=== PATIENT | female | born 1970 | race Caucasian/White ===

== ENCOUNTER 2016-09-10 21:59 | Observation (INO) | payer OTHER ==
--- NOTE | ~2016-09-10 | BMI ---
[facility] Nutrition Therapy DATE: 09/12/16 Patient: LILLIAN Langston MATHEW PARKS Physician: RESHMA Address: [address] Room/Bed: [address] [place] [address], Zip: [place] [address] Admit Date: 09/11/16 Date of : 74 Height: 5 7 Weight: 310 140.8 HIGH BMI NOTE: DX: CHEST PRESSURE ANTHROPOMETRICS: HT: 5'7", 310# (141KG), BMI: 48.5 DIET: CCD, HT RECOMMENDATIONS: CONTINUE CURRENT DIET ORDERS OF CC, HEART HEALTHY TO PROMOTE A STEADY WEIGHT LOSS TOWARDS A HEALTHY BMI OF 19-25 AND NORMAL GLUCOSE LEVELS Respectfully, EMMANUEL SUÁREZ, YOAV, LD [facility] cc: client file
--- NOTE | ~2016-09-10 | CT71 ---
[facility] A Service of [facility] & [facility] RADIOLOGY TEXT RESULTS PATIENT: LILLIAN STEVENS LOCATION: [facility] 561-01 : 74 UNIT #: [id number] AGE: [address]: Jo Ann Gallardo MD SEX: F ORDER DR: [id number] [facility] [address] [place], [place] [address] [id number] I MR#: [id number] Acc #: [id number] NAME: LILLIAN STEVENS : 1970 SEX: F STUDY DATE/TIME: 09/10/2016 22:32 UNIT: [facility] ROOM: [facility] STUDY DESCRIPTION: CT Head Wo Contrast Attending Physician: Slava Lazo M.D. Ordering Physician: Winston Kirkland D.O. Primary Care Physician: Jo Ann Gallardo M.D. MEDICAL IMAGING REPORT This report is preliminary unless electronic signature is present EXAM Head CT, 09/10/2016 at 22:32 INDICATION Dizziness and double vision since 08:30 p.m. this evening. Positional vertigo. TECHNIQUE Axial images were obtained from the base to the vertex without contrast. Comparison is made with 05/11/2008. This CT exam was performed with one or more of the following radiation dose reduction techniques: automatic exposure control, adjustment of mA and/or kV according to patient size, and iterative reconstruction. FINDINGS Ventricular size and configuration are normal. There is no acute infarct or hemorrhage. There are no masses. Mild chronic mucosal thickening is noted in the sphenoid sinuses as well as the left maxillary sinus and left side ethmoid air cells. No evidence of acute sinus disease. No skull fracture. Visualized mastoid air cells and middle ear cavities are clear. IMPRESSION Mild chronic mucosal thickening in the paranasal sinuses. Otherwise, negative head CT. Dictated by... Danyel Yee Jr., M.D. THIS IS AN ELECTRONICALLY VERIFIED REPORT Danyel Yee Jr., M.D. at 09/11/2016 9:[address] [facility] A Service of [facility] RADIOLOGY TEXT RESULTS PATIENT: LILLIAN STEVENS LOCATION: [facility] 561-01 : 74 UNIT #: [id number] AGE: [address]: Jo Ann Gallardo MD SEX: F ORDER DR: FELIBERTO/hien TD: 09/11/2016 00:47 JOB #: [id number] MEDICAL IMAGING REPORT COPY
--- NOTE | ~2016-09-10 | US67 ---
[facility] A Service of [facility] RADIOLOGY TEXT RESULTS PATIENT: LILLIAN STEVENS LOCATION: [place] [address] : 74 UNIT #: [id number] AGE: [address]: Jo Ann Gallardo MD SEX: F ORDER DR: [id number] [facility] [address] [facility] [place], [place] [address] [id number] I MR#: [id number] Acc #: [id number] NAME: LILLIAN STEVENS. : 1970 SEX: F STUDY DATE/TIME: 09/11/2016 10:25 UNIT: B ROOM: [facility] STUDY DESCRIPTION: US Gallbladder Attending Physician: Jo Ann Gallardo M.D. Ordering Physician: Cookie Shirley M.D. Primary Care Physician: Jo Ann Gallardo M.D. MEDICAL IMAGING REPORT This report is preliminary unless electronic signature is present EXAM Right upper quadrant abdominal ultrasound. INDICATION Right upper quadrant abdominal pain today. PROCEDURE Trivedi-scale and Doppler imaging right upper quadrant of the abdomen. COMPARISON None FINDINGS Visualized portion of pancreas unremarkable. The liver has diffusely increased echotexture compared with the right kidney. Liver measures 14.5 cm. Right kidney not well seen but measures approximately 10.7 cm. The common duct measures 3-4 mm. Gallbladder is not well seen. There is shadowing from the gallbladder fossa. IMPRESSION 1. Dense shadowing from the gallbladder fossa. The gallbladder itself is not well seen on this study. It could represent a gallbladder filled with multiple stones. It is not seen well enough to comment on any wall thickening. 2. No significant bile duct dilation. 3. Increased liver echotexture most in keeping with steatosis. Dictated by... Eddie Martinez M.D. THIS IS AN ELECTRONICALLY VERIFIED REPORT [facility] A Service of [facility] RADIOLOGY TEXT RESULTS PATIENT: LILLIAN STEVENS LOCATION: [place] [address] : 74 UNIT #: [id number] AGE: [address]: Jo Ann Gallardo MD SEX: F ORDER DR: Eddie Martinez M.D. at 09/12/2016 11:39 AM PATI/darshana TD: 09/11/2016 11:40 JOB #: [id number] MEDICAL IMAGING REPORT COPY
--- NOTE | ~2016-09-10 | HP ---
Unit #: [id number] #: [id number] Patient: LILLIAN STEVENS [id number] [address] [address] [id number] I MR#: [id number] NAME: LILLIAN STEVENS. ROOM: [facility] Age: 46 Sex: F Admission Date: 09/11/2016 : 1970 Attending Physician: Jo Ann Gallardo M.D. Primary Care Physician: Jo Ann Gallardo M.D. HISTORY AND PHYSICAL CHIEF COMPLAINT Left-sided chest pain and dizziness. HISTORY OF PRESENTING ILLNESS A 46-year-old female with a history of hypertension, hyperlipidemia, diabetes mellitus, morbid obesity, came because of the complaint of left-sided chest pressure which was going on for some time. She has a history of coronary artery disease, had workup done in [facility] although details are not known. Patient received sublingual nitrate. It got better. The patient's pain was radiating to the left anterior chest and underneath the breast. She did not have any nausea or vomiting, did not complain of shortness of breath. She does complain of some dizzy spell. She also complained of some upper abdominal pain. No nausea or vomiting. No diarrhea. No major abdominal pain. PAST MEDICAL HISTORY 1. Hypertension. 2. Hyperlipidemia. 3. Diabetes mellitus. 4. Coronary artery disease with workup done at [facility]. 5. Embolectomy status post left upper extremity thrombus removed in February 2014. FAMILY HISTORY Family history is unremarkable. ALLERGIES No known drug allergies. SOCIAL HISTORY Patient is a smoker, continues to smoke. She used to smoke two packs per day. Now she is smoking a half pack. She has been smoking more than her years. No alcohol abuse or drug abuse. HOME MEDICATION Home medication is: 1. Aspirin 325 mg. 2. Simvastatin 20 mg. 3. Metoprolol 25 mg b.i.d. 4. Isosorbide 30 mg daily. 5. Lisinopril 5 mg daily. 6. Lantus 10 units subcu q.h.s. Unit #: [id number] #: [id number] Patient: LILLIAN STEVENS REVIEW OF SYMPTOMS As per history of presenting illness. PHYSICAL EXAMINATION GENERAL APPEARANCE: Patient is in no respiratory distress. VITAL SIGNS: Blood pressure is 155/93. Temperature 97.6. Pulse of 92. Respiratory rate 18. HEENT: Head is normocephalic. Eye movements are normal. NECK: Neck is supple. CHEST: Has fair air entry, no additional sounds. CVS: S1, S2 positive, regular rhythm. ABDOMEN: Abdomen is soft. Mild right upper quadrant tenderness is present. No rigidity or rebound. Bowel sounds are positive in all quadrants. EXTREMITIES: Negative edema. [employer]: Awake, alert and oriented x3. No focal neurological deficit. DIAGNOSTIC STUDIES IMAGING: CT scan is negative. LABORATORY: Troponin is in normal range, sodium is 137, WBC is 13, INR is 0.9, hemoglobin is 14.2, platelet is 300. ASSESSMENT Patient is being admitted to a telemetry unit with: 1. Atypical chest pain. 2. Right upper quadrant pain. 3. Hypertension, uncontrolled. 4. Diabetes mellitus. 5. Hyperlipidemia. PLAN Plan is admit to telemetry unit. Dr. Latham has been consulted. Stress test is being scheduled. Acute AZ has been ruled out. Home medication have been reviewed. Accu-Chek a.c. and h.s. and insulin sliding scale has been started. Nicotine cessation counseling done. Please refer to progress note for further orders. Dictated by Rodriguez Gama/pia TD: 09/12/2016 15:35 JOB #: [id number] Unit #: [id number] #: [id number] Patient: LILLIAN STEVENS HISTORY AND PHYSICAL X Jo Ann Gallardo MD X HISTORY AND PHYSICAL
--- NOTE | ~2016-09-10 | CR72 ---
[facility] A Service of [facility] RADIOLOGY TEXT RESULTS PATIENT: LILLIAN STEVENS LOCATION: [place] [address] : 74 UNIT #: [id number] AGE: [address]: Jo Ann Gallardo MD SEX: F ORDER DR: [id number] [facility] [address] [place], [place] [address] [id number] MR#: [id number] Acc #: [id number] NAME: LILLIAN STEVENS : 1970 SEX: F STUDY DATE/TIME: 09/10/2016 21:39 UNIT: [facility] ROOM: STUDY DESCRIPTION: CR Chest Single View Portable Attending Physician: Winston Kirkland D.O. Ordering Physician: Winston Kirkland D.O. Primary Care Physician: Jo Ann Gallardo M.D. MEDICAL IMAGING REPORT This report is preliminary unless electronic signature is present EXAM Portable chest, 09/10/2016 HISTORY Left lower chest pain today. FINDINGS The cardiac size and pulmonary vascularity are normal. Moderate mid-right thoracic curve and left upper thoracic curve. No infiltrates or effusions. IMPRESSION No acute findings. No active disease. Dictated by... Wilmer Lindsey M.D. THIS IS AN ELECTRONICALLY VERIFIED REPORT Wilmer Lindsey M.D. at 09/11/2016 12:21 PM DONNA/hien TD: 09/11/2016 00:32 JOB #: [id number] MEDICAL IMAGING REPORT COPY
--- NOTE | ~2016-09-10 | TH ---
Unit #: [id number] #: [id number] Patient: LILLIAN STEVENS K [id number] [address] [address] [id number] I MR#: [id number] NAME: LILLIAN STEVENS : 1970 SEX: F STUDY DATE/TIME: 09/11/2016 UNIT: C5B ROOM: [facility] STUDY DESCRIPTION: Lexiscan stress test - Nuclear Attending Physician: Jo Ann Gallardo M.D. Primary Care Physician: Jo Ann Gallardo M.D. CARDIOLOGY REPORT PROCEDURE PERFORMED Lexiscan Cardiolite stress test - Nuclear portion. PROCEDURE Using technetium 99m-labeled Cardiolite, rest and stress SPECT images were obtained. Multiple SPECT images were obtained in various views, including horizontal and vertical long axis and short axis views of the left ventricle. Images were obtained by gated SPECT method. The patient was administered 10.58 mCi of Cardiolite at rest. The patient was administered 30.2 mCi of Cardiolite after Lexiscan infusion was completed. On the stress images, there is normal perfusion noted. The rest images show normal perfusion. Comparing the rest and stress images, there is no stress-induced ischemia noted. The left ventricular ejection fraction is calculated to be 65%. There is no focal wall motion abnormality seen. CONCLUSION 1. No stress-induced ischemia noted. 2. The left ventricular ejection fraction is calculated to be 65%. 3. There is no focal wall motion abnormality seen. 4. Normal Lexiscan Cardiolite stress test. Dictated by... Rodriguez Desai/adelso TD: 09/11/2016 15:41 JOB #: [id number] CARDIOLOGY REPORT X Cookie Shirley MD <ELECTRONICALLY SIGNED> 02/10/17 1428 CARDIOLOGY REPORT
--- NOTE | ~2016-09-10 | DS ---
Unit #: [id number] #: [id number] Patient: LILLIAN STEVENS [id number] [address] [place], [place] [address] [id number] I MR#: [id number] NAME: LILLIAN STEVENS ROOM: [facility] Age: 46 Sex: F Admission Date: 09/11/2016 : 1970 Discharge Date: 09/12/2016 Attending Physician: Jo Ann Gallardo M.D. Primary Care Physician: Jo Ann Gallardo M.D. DISCHARGE SUMMARY FINAL DIAGNOSES 1. Atypical chest pain: Acute myocardial infarction has been ruled out. The patient was seen by Dr. Latham and stress test was done which showed no ischemia. According to patient, she had a small myocardial infarction in May 2015, and she had a workup done by Dr. Aranda at [facility] although details are not known. She had a left heart cath done which showed mild occlusive disease and medical management was recommended at that time. 2. Right upper quadrant pain: The patient did complain of pain during hospitalization although this has resolved completely according to patient. She has been eating, no complaint of vomiting. The patient is afebrile. No leukocytosis. The patient had ultrasound of gallbladder done which shows dense shadowing from the gallbladder fossa. The gallbladder itself is not well seen on this study. It could represent a gallbladder filled with multiple stones. It is not seen well enough to comment on any wall thickening. No significant bile duct dilatation. Increased liver echotexture most in keeping with steatosis. 3. Hypertension. 4. Morbid obesity with body mass index of 49. 5. Tobacco abuse. 6. Diabetes which is uncontrolled with hemoglobin A1c of 10.6: Patient has been informed that her diabetes is uncontrolled. We are going to increase her Lantus from 10 to 20 units subcu daily. The patient is going to check blood sugar at home three times a day and make a log and bring it to us in 7 to 10 days or so. She does verbalize understanding. LAB WORKUP ON DISCHARGE Glucose 251, hemoglobin A1c 10.6. Urine culture was no growth. Lipid profile shows total cholesterol 151, triglycerides 230, LDL 72, HDL 33, troponin less than 0.03. Sodium 137, potassium 3.6, chloride 100, BUN 11, creatinine 0.8. Liver enzymes were stable. CBC shows WBC 13.2, hemoglobin 14.2, hematocrit 43.0 and platelet count of 300. RADIOLOGICAL STUDIES DONE DURING HOSPITALIZATION Chest x-ray - no active disease. Unit #: [id number] #: [id number] Patient: LILLIAN STEVENS CT scan of the head without contrast was done because of dizziness and double vision which showed mild chronic mucosal thickening in the paranasal sinuses. Otherwise, negative. CT of the chest was done which shows no pulmonary embolism or aortic dissection. Probable coronary artery disease in the LAD. Minimal atelectasis or scarring in the right upper lobe along the minor fissure. Upper thoracic levoscoliosis, hepatic steatosis. Ultrasound of gallbladder was as above. VITAL SIGNS on discharge - blood pressure 140/68, respiratory rate 16, pulse is 91, temperature 98.1. CHEST has fair air entry. CVS is regular rhythm. ABDOMEN is soft and no tenderness. DISCHARGE MEDICATIONS 1. Tylenol 650 q.4 p.r.n. 2. Metoprolol 25 mg b.i.d. 3. Fenofibrate 201 mg daily. 4. Simvastatin 10 mg daily. 5. Hydralazine 25 mg b.i.d. 6. Lisinopril 5 mg daily. 7. Lantus changed to 20 units subcu q. h.s. 8. Aspirin 81 mg daily. 9. Isosorbide 30 mg daily. DISCHARGE INSTRUCTIONS 1. Follow up with primary care provider in 7 to 10 days. 2. HIDA scan to be scheduled as an outpatient. 3. Medication as above. Prescription has been written. Dictated by... Jo Ann Gallardo M.D. Romel TD: 09/13/2016 13:04 JOB #: [id number] DISCHARGE SUMMARY X Jo Ann Gallardo MD X DISCHARGE SUMMARY
--- NOTE | ~2016-09-10 | CO ---
Unit #: [id number] #: [id number] Patient: LILLIAN STEVENS [id number] [facility] [address] [place], [place] [address] [id number] I MR#: [id number] NAME: LILLIAN STEVENS. ROOM: [facility] Age: 46 Sex: F Admission Date: 09/11/2016 : 1970 Attending Physician: Jo Ann Gallardo M.D. Primary Care Physician: Jo Ann Gallardo M.D. Consultation Date: 09/11/2016 CONSULTATION REPORT Jo Copeland, Nurse Practitioner, for [facility] Cardiology dictating for Dr. Shirley. REFERRING PHYSICIAN Dr. Gallardo. HISTORY OF PRESENT ILLNESS This is a 46-year-old female who presented to [facility] with intermittent chest pressure that started last night about 7:00 p.m. and lasted for 2 to 2-1/2 hours until she arrived and got 2 sublingual nitrates. Her pain radiated to her left anterior chest and underneath her left breast. She denies any nausea, vomiting, diaphoresis, or shortness of breath and no other radiation symptoms. The pain started while she was at rest just watching TV. She had complaints of dizziness at that time. She follows up with Dr. Aranda at [facility] and she had a workup in 05/2015 status post a small VA. She had a left heart cath, which showed mild occlusive disease, and medical management was recommended at that time. She also reports that she did have an echo in 05/2015 at the time of her heart attack and she had a normal EF. Further details of this are unknown. PAST MEDICAL HISTORY She has a past medical history of diabetes, positional vertigo, nonobstructive coronary artery disease, hypertension, hyperlipidemia, and an embolectomy status post a left upper extremity thrombus in 02/2014 and she maintained on Coumadin for 1-1/2 years and she since has been off Coumadin. FAMILY HISTORY She has no family history of any coronary artery disease. ALLERGIES Include No known allergies. HOME MEDICATIONS Simvastatin 20 mg daily; aspirin enteric coated 325 daily; metoprolol tartrate 25 mg b.i.d.; isosorbide mononitrate (Imdur) 30 mg daily; lisinopril 5 mg daily; Lantus 10 units subcu at bedtime. SOCIAL HISTORY Positive for smoking. She is from 2 packs a day down to a half pack or under, but she has smoked for 30 years. She denies any alcohol and any illicit drug use. Unit #: [id number] #: [id number] Patient: LILLIAN STEVENS REVIEW OF SYSTEMS Positive for chest pressure as indicated in the HPI; however, upon interview, she was chest pain free. She denies radiation other than the pressure that was to her left breast. She denies orthopnea, shortness of breath, nausea, vomiting, diaphoresis, and did have positive dizziness. No headache. No bleed. PHYSICAL EXAMINATION VITAL SIGNS: Temperature 97.6, pulse 92, respiratory rate 18, oxygen saturation 95%, blood pressure 155/93. GENERAL: She is well developed, obese, female in no acute distress. HEENT: Head is normocephalic. Pupils are equal, round, and reactive to light and accommodation. Extraocular movements are intact. NECK: Supple with no JVD noted. No hepatojugular reflux. LUNGS: Diminished in the bases, but clear. CARDIOVASCULAR: She is in regular rate and rhythm. S1 and S2, but no murmurs, gallops, or rubs appreciated. ABDOMEN: Obese, but soft. Nontender with positive bowel sounds. EXTREMITIES: Show no edema. DIAGNOSTIC STUDIES IMAGING STUDIES: Include CT of the head on 09/10/2016, which was negative. A chest x-ray on 09/10/2016 showed no acute findings and no active disease. A CTA of the chest on 09/10/2016 showed no PE or aortic dissection, probable coronary artery disease in the LAD, minimal atelectasis or scarring seen in the right upper lobe. CARDIOVASCULAR STUDIES: A 12-lead EKG on 09/10/2016, which showed normal sinus rhythm. LABORATORY RESULTS: Include sodium 137, potassium 3.6, chloride 100, CO2 of 27, BUN of 11, creatinine 0.8, glucose 177, AST is 16, ALT is 19. D-dimer was 881. PT is 9.9, INR is 0.9. Troponins were less than 0.05 x2 and less than 0.03 x2. Hemoglobin is 14.2, hematocrit is 43, WBCs 13.2, and platelets 300. ASSESSMENT 1. Atypical-type chest pain in the setting of multiple risk factors. 2. Right upper quadrant tenderness. 3. Hypertension. 4. Tobacco abuse. 5. Obesity. Her BMI is 49. 6. Diabetes. 7. Dyslipidemia. PLAN Cardiology was consulted for chest pressure. She has been ruled out for any acute ischemic event with negative troponins and a normal EKG. To rule out ischemia, we will check an exercise Lexiscan on 09/11/2016, which was done and was actually negative for any ischemia. A lipid panel showed a total cholesterol of 151, triglyceride count is 230, LDL is 72, HDL is 33. I will also check a hemoglobin A1c and a TSH; however, she tells me Unit #: [id number] #: [id number] Patient: LILLIAN STEVENS that her TSH was recently evaluated and normal. She is having quite a lot of right upper quadrant pain, especially with palpation. I will order an ultrasound of her gallbladder and try to obtain cardiac records from [facility]. She can eat a heart healthy diet after her exercise Lexiscan was complete. We encouraged her to quit smoking, diet and exercise for risk modification. We will actually change her home simvastatin to Crestor as her triglycerides are quite elevated and possibly start fenofibrate. Dictated by... Jo Copeland APRN for Rodriguez Desai/armin TD: 09/12/2016 04:00 JOB #: [id number] CONSULTATION REPORT X X CONSULTATION REPORT
--- NOTE | ~2016-09-10 | ST ---
Unit #: [id number] #: [id number] Patient: LILLIAN STEVENS [id number] [address] [address] [id number] I MR#: [id number] NAME: LILLIAN STEVENS. : 1970 SEX: F STUDY DATE/TIME: 09/11/2016 UNIT: C5B ROOM: [facility] STUDY DESCRIPTION: Cardiac stress test Attending Physician: Jo Ann Gallardo M.D. Primary Care Physician: Jo Ann Gallardo M.D. CARDIOLOGY REPORT EXAM Cardiac stress test. REASON FOR STUDY Chest pain. PROCEDURE Baseline EKG shows sinus tachycardia with a rate of 121, with slow R wave progression. The patient was given 0.4 mg of Lexiscan followed by Cardiolite per protocol. The patient's resting heart rate was 121 with a maximum heart rate of 155. The resting blood pressure was 151/87 with a maximum blood pressure of 162/86. The patient walked on the treadmill for the 4 minutes and tolerated it well. The patient did not complain of any chest pain or pressure during the test. She did have some minor GI upset that resolved by end of the testing. The patient did not have any sustained arrhythmias or ectopy noted during the test. There were no changes to the ST segment to indicate ischemia. The test was stopped due to protocol completion. The patient tolerated the procedure well with no complications. No reversal was given. IMPRESSION 1. No sustained arrhythmias. 2. No ectopy. 3. No ST segment changes. 4. The patient tolerated the procedure well with no complications. 5. No reversal needed. 6. Please correlate with Cardiolite imaging. Dictated by... RADHA Johnson TD: 09/11/2016 12:16 JOB #: [id number] Unit #: [id number] #: [id number] Patient: LILLIAN STEVENS CARDIOLOGY REPORT X CARDIOLOGY REPORT
--- NOTE | ~2016-09-10 | EKG ---
PATIENT: LILLIAN STEVENS UNIT #: [id number] Ventricular Rate: 89 BPM Atrial Rate: 89 BPM P-R Interval: 138 ms QRS Duration: 94 ms Q-T Interval: 376 ms QTC Calculation(Bezet): 457 ms P [place]: 55 degrees Calculated R [place]: 47 degrees Calculated T [place]: 38 degrees Diagnosis Line: Normal sinus rhythm Diagnosis Line: Normal ECG Diagnosis Line: Diagnosis Line: Confirmed by MARY JANE WESLEY MD ([id number]) on Diagnosis Line: 09/11/2016 10:50:04 PM INTERPRETING MD: JOHAN
--- NOTE | ~2016-09-10 | CT16 ---
[facility] A Service of [facility] & [facility] RADIOLOGY TEXT RESULTS PATIENT: LILLIAN STEVENS LOCATION: [place] [address] : 74 UNIT #: [id number] AGE: [address]: Slava Lazo MD SEX: F ORDER DR: [id number] [facility] [address] [place], [place] [address] [id number] I MR#: [id number] Acc #: [id number] NAME: LILLIAN STEVENS. : 1970 SEX: F STUDY DATE/TIME: 09/10/2016 23:51 UNIT: CEDOF ROOM: [id number] STUDY DESCRIPTION: CT Angio Chest for PE Attending Physician: Slava Lazo M.D. Ordering Physician: Winston Kirkland D.O. Primary Care Physician: Jo Ann Gallardo M.D. MEDICAL IMAGING REPORT This report is preliminary unless electronic signature is present EXAM Chest CTA, 09/10/2016 at 23:51 INDICATION Chest pain that started at 7 o'clock this evening. Pain is predominately midsternal radiating to the left side. There is associated cough and congestion as well as dizziness. Patient has an elevated D-dimer level. TECHNIQUE Axial images were obtained through the chest following IV contrast administration. 3-D reformats were obtained. No comparison chest CT. This CT exam was performed with one or more of the following radiation dose reduction techniques: automatic exposure control, adjustment of mA and/or kV according to patient size, and iterative reconstruction. FINDINGS There is no pulmonary embolism or aortic dissection. There is no adenopathy. There is no pleural or pericardial effusion. There is probable coronary artery disease, particularly in the LAD. There is some mild atelectasis or scarring in the right upper lobe along the minor fissure. The lungs are otherwise clear. The upper abdomen demonstrates hepatic steatosis. There is upper thoracic levoscoliosis measuring about 44 degrees. IMPRESSION 1. No pulmonary embolism or aortic dissection. 2. Probable coronary artery disease in the LAD. 3. Minimal atelectasis or scarring in the right upper lobe along the minor fissure. Lungs otherwise clear. 4. Upper thoracic levoscoliosis. 5. Hepatic steatosis. [facility] A Service of [facility] & [facility] RADIOLOGY TEXT RESULTS PATIENT: LILLIAN STEVENS LOCATION: [place] [address]- : 74 UNIT #: [id number] AGE: [address]: Slava Lazo MD SEX: F ORDER DR: Dictated by... Danyel Yee Jr., M.D. THIS IS AN ELECTRONICALLY VERIFIED REPORT Danyel Yee Jr., M.D. at 09/11/2016 6:07 AM FELIBERTO/hien TD: 09/11/2016 03:32 JOB #: [id number] MEDICAL IMAGING REPORT COPY
[~2016-09-10 21:59] MED LIST: ALBUTEROL17 GM INH; AUGMENTIN PO; DIFLUCAN PO; FLEXERIL10 MG PO; IBUPROFEN PO; KETOPROFEN PO; LORTAB 5/500 TA1 TA1 PO; MEDROL PO; MEDROL4 MG/DOSE- PO; METOPROLOL SUCC25 MG PO; ORUDIS75 M1 PO; PERCOCET5/325 PO; SKELAXIN PO; ST. JOSEPH ASP325 MG PO; TESSALON200 MG PO; TOPROL XL; TOPROL XL PO; TUSSIONEX PENN473 ML PO; TYLOX 5/500 CAP1 CAP PO; ZITHROMAX PO; ZOCOR PO
[2016-09-10 22:04] LABS: BASOPHIL# 0.1 X10e3 (0-0.3); BASOPHIL% 0.9 % (0-2.5); EOSINOPHIL# 0.9 X10e3 (0-0.7); EOSINOPHIL% 6.6 % (0.0-7.0); HEMOGLOBIN 14.2 gm/dL (12.0-16.0); LYMPHOCYTE# 3.4 X10e3 (1.0-3.5); LYMPHOCYTE% 25.8 % (17.0-45.0); MEAN CELL VOLUME 90.9 FL (83-96); MONOCYTE# 0.9 X10e3 (0-1.0); NEUTROPHIL# 7.9 X10e3 (1.5-7.1); NEUTROPHIL% 59.7 % (40-75); PLATELET COUNT 300 X10e3 (140-420); RED BLOOD COUNT 4.73 X10e (3.90-5.30); RED CELL DISTRIBUTION WIDTH 13.9 % (11.0-15.5); WHITE BLOOD COUNT 13.2 X10e3 (4.0-10.5)
[2016-09-10 22:06] LABS: URINE SOURCE CLEAN CATCH
[2016-09-10 22:10] LABS: DIFF IND NO
[2016-09-10 22:11] LABS: URINE APPEARANCE CLEAR; URINE BILIRUBIN NEG (NEG); URINE BLOOD NEG (NEG); URINE COLOR YELLOW; URINE GLUCOSE NEG (NEG); URINE KETONE NEG (NEG); URINE LEUKOCYTE ESTERASE TRACE (NEG); URINE NITRATE NEG (NEG); URINE PH 5.5 (5-8); URINE PROTEIN NEG (NEG); URINE SPECIFIC GRAVITY 1.015 (1.003-1.035); URINE UROBILINOGEN 0.2 MG/DL (NEG)
[2016-09-10 22:13] LABS: CULTURE INDICATED? YES; U HYALINE CASTS AUWI 0-2 /[LPF]; URINE BACTERIA AUWI 2+ (NEGATIVE); URINE SQUAMOUS EPITHELIAL CELL OCC /[HPF]
[2016-09-10 22:17] LABS: POC - CKMB <1.0 ng/mL (0.0-7.9); POC - TROPONIN <0.05 ng/mL (<=0.05)
[2016-09-10 22:20] LABS: INR 0.9; PARTIAL THROMBOPLASTIN TIME 25.5 SECONDS (23.5-31.3); PROTHROMBIN TIME (PATIENT) 9.9 SECONDS (9.6-11.5)
[2016-09-10 22:48] LABS: ALBUMIN SERUM 3.5 g/dL (3.5-5.0); ALKALINE PHOSPHATASE 69 U/L (32-92); ALT (SGPT) 19 U/L (10-40); AST (SGOT) 16 U/L (10-42); BILIRUBIN,TOTAL 0.3 mg/dL (0.2-2.0); BLOOD UREA NITROGEN 11 mg/dL (9-23); BUN/CREATININE RATIO 13.75; CALCIUM SERUM 9.5 mg/dL (8.4-10.2); CARBON DIOXIDE 27 mmol/L (22-31); CHLORIDE 100 mmol/L (100-111); CREATININE SERUM 0.8 mg/dL (0.6-1.4); GLOM FILT RATE Estimated ABOVE60 mL/min (>60); GLUCOSE FASTING 177 mg/dL (70-110); POTASSIUM 3.6 mmol/L (3.5-5.1); PROTEIN TOTAL SERUM 7.7 g/dL (6.0-8.3); SODIUM 137 mmol/L (135-145)
[2016-09-10 22:49] LABS: BILIRUBIN, DIRECT <0.1 mg/dL (0.0-0.2); BILIRUBIN,INDIRECT 0.2 mg/dL (0.0-0.9)
[2016-09-10 23:08] LABS: POC - CKMB <1.0 ng/mL (0.0-7.9); POC - TROPONIN <0.05 ng/mL (<=0.05)
[2016-09-11] MEDS ORDERED: SIMVASTATIN20 MG PO (03:43)
[2016-09-11] MEDS ORDERED: COATED ASPIRIN325 M1 PO (03:44)
[2016-09-11] MEDS ORDERED: METOPROLOL TAR25 MG PO (03:45)
[2016-09-11] MEDS ORDERED: ISMO20 M2 PO (03:45)
[2016-09-11] MEDS ORDERED: LISINOPRIL5 MG PO (03:46)
[2016-09-11] MEDS ORDERED: LANTUS100 U/ML SUBQ (03:46)
[2016-09-11 09:56] LABS: CK TOTAL 48 IU/L (26-140)
[2016-09-11 15:10] LABS: CHOLESTEROL 151 mg/dL (0-200); HDL CHOLESTEROL 33 mg/dL (35-95); LDL CHOLESTEROL 72 mg/dL (-130); LDL/HDL RATIO 2 RATIO (0-4); TRIGLYCERIDES 230 mg/dL (10-160)
[2016-09-11 15:24] LABS: CK TOTAL 49 IU/L (26-140)
[2016-09-12] MEDS ORDERED: HYDRALAZINE HCL25 MG PO (15:18)
[2016-09-12] MEDS ORDERED: FENOFIBRATE200 M1 PO (15:18)
[2016-10-16] MEDS ORDERED: ASPIRIN81 M2 PO (12:01)
== END 2016-09-12 16:30 | disposition home or self-care (01) | DRG 313 ==
LOC: CED 21:59 → CEDOF 09-11 01:53 → C5B 09-11 04:06
PROVIDERS: Emergency Medicine; Internal Medicine Cardiovascular Disease
DX: R07.89 Other chest pain (principal); R10.11 Right upper quadrant pain; K76.0 Fatty (change of) liver, not elsewhere classified; J98.4 Other disorders of lung; J34.9 Unspecified disorder of nose and nasal sinuses; M41.9 Scoliosis, unspecified; Z23 Encounter for immunization; E11.65 Type 2 diabetes mellitus with hyperglycemia; Z79.4 Long term (current) use of insulin; I10 Essential (primary) hypertension; E66.01 Morbid (severe) obesity due to excess calories; Z68.42 Body mass index [BMI] 45.0-49.9, adult; H81.10 Benign paroxysmal vertigo, unspecified ear; I25.10 Atherosclerotic heart disease of native coronary artery without angina pectoris; F17.200 Nicotine dependence, unspecified, uncomplicated; Z79.82 Long term (current) use of aspirin; Z79.899 Other long term (current) drug therapy; Z86.718 Personal history of other venous thrombosis and embolism
CPT/HCPCS: 36415; 70450; 71010; 71275; 76705; 78452; 80048; 80061; 80076; 81003; 82550; 82553; 82947; 83036; 84484; 84703; 85025; 85379; 85610; 85730; 87086; 90732; 90853; 93005; 93017; 96372; 99285; A9500; G0009; G0378; J1650; J1815; J2785; Q9967

== ENCOUNTER → 2016-09-22 | Outpatient (CLI) | payer OTHER ==
[~2016-09-22] MED LIST changes: +ASPIRIN81 M2 PO; +ASPIRIN81 MG PO; +COATED ASPIRIN325 M1 PO; +ELIQUIS5 MG PO; +FENOFIBRATE200 M1 PO; +HYDRALAZINE HCL25 MG PO; +IMDUR-ER30 M1 PO; +ISMO20 M2 PO; +ISORDIL40 MG PO; +ISOSORBIDE MONO30 M1 PO; +LANTUS SOL100 UNIT/1 SUBQ; +LANTUS100 U/ML SUBQ; +LISINOPRIL PO; +LISINOPRIL5 MG PO; +LOPRESSOR PO; +LORTAB 5-325 M1 EACH PO; +METOPROLOL TAR25 MG PO; +MIRALAX17 G2 PO; +SENNA8.6 M1 PO; +SIMVASTATIN20 MG PO; +SIMVASTATIN40 MG PO
--- NOTE | ~2016-09-22 | NM22 ---
[facility] A Service of [facility] & [facility] RADIOLOGY TEXT RESULTS PATIENT: LILLIAN STEVENS LOCATION: [facility] : 74 UNIT #: [id number] AGE: [address]: Jo Ann Gallardo MD SEX: F ORDER DR: [id number] [facility] [address] [place], [place] [address] [id number] O MR#: [id number] Acc #: [id number] NAME: LILLIAN STEVENS : 1970 SEX: F STUDY DATE/TIME: 09/22/2016 13:03 UNIT: [facility] ROOM: STUDY DESCRIPTION: NM Hepatobiliary W GB Pharm Attending Physician: Jo Ann Gallardo M.D. Referring Physician: Jo Ann Gallardo M.D. Ordering Physician: Jo Ann Gallardo M.D. Primary Care Physician: Jo Ann Gallardo M.D. MEDICAL IMAGING REPORT This report is preliminary unless electronic signature is present EXAM HIDA scan, 09/22/2016. HISTORY Right upper quadrant abdominal pain, mid back pain, constipation, and nausea for 3 months. Gallbladder ultrasound 09/11/2016 demonstrated extensive cholelithiasis. FINDINGS The patient received an intravenous injection of 5.51 mCi of technetium 99m tagged Choletec for hepatobiliary imaging. Images of the upper abdomen were obtained at 15-minute intervals for 1 hour and 90-minute and 120-minute delayed images were also obtained of the upper abdomen. There was homogeneous distribution of the radiotracer throughout the liver. Biliary activity was seen by 15 minutes postinjection of the radiopharmaceutical and small bowel activity was seen after 30 minutes. However, no gallbladder activity was seen throughout the examination. Findings are concerning for cystic duct obstruction and possible cholecystitis. Clinical correlation is recommended. IMPRESSION Nonvisualization of the gallbladder after 2 hours of imaging. Findings are concerning for cystic duct obstruction and possible cholecystitis. Clinical correlation recommended. STAT * RESULT Dictated by... Basim Wilson M.D. THIS IS AN ELECTRONICALLY VERIFIED REPORT [facility] A Service of [facility] RADIOLOGY TEXT RESULTS PATIENT: LILLIAN STEVENS LOCATION: [facility] #: [id number] : 74 UNIT #: [id number] AGE: [address]: Jo Ann Gallardo MD SEX: F ORDER DR: Basim Wilson M.D. at 09/22/2016 4:57 PM AVA/darshana TD: 09/22/2016 14:52 JOB #: [id number] MEDICAL IMAGING REPORT COPY
== END | disposition home or self-care (01) ==
LOC: CNUC 11:29
DX: R10.9 Unspecified abdominal pain (principal)
CPT/HCPCS: 78227; A9537

== ENCOUNTER 2016-09-27 15:25 | Emergency (ER) | payer OTHER ==
[2016-09-27 15:02] LABS: BASOPHIL# 0.1 X10e3 (0-0.3); BASOPHIL% 0.9 % (0-2.5); EOSINOPHIL# 0.8 X10e3 (0-0.7); EOSINOPHIL% 5.8 % (0.0-7.0); HEMATOCRIT 39.8 % (35.0-45.0); HEMOGLOBIN 13.1 gm/dL (12.0-16.0); LYMPHOCYTE# 3.8 X10e3 (1.0-3.5); LYMPHOCYTE% 26.4 % (17.0-45.0); MEAN CELL VOLUME 90.9 FL (83-96); MEAN PLATELET VOLUME 9.1 FL (6.5-11.5); MONOCYTE# 0.8 X10e3 (0-1.0); MONOCYTE% 5.9 % (3.0-12.0); NEUTROPHIL# 8.7 X10e3 (1.5-7.1); PLATELET COUNT 362 X10e3 (140-420); RED BLOOD COUNT 4.38 X10e (3.90-5.30); RED CELL DISTRIBUTION WIDTH 13.5 % (11.0-15.5); WHITE BLOOD COUNT 14.2 X10e3 (4.0-10.5)
[2016-09-27 15:16] LABS: DIFF IND NO
[~2016-09-27 15:25] MED LIST changes: -ASPIRIN81 M2 PO; -ASPIRIN81 MG PO; -ELIQUIS5 MG PO; -IMDUR-ER30 M1 PO; -ISORDIL40 MG PO; -ISOSORBIDE MONO30 M1 PO; -LANTUS SOL100 UNIT/1 SUBQ; -LISINOPRIL PO; -LOPRESSOR PO; -LORTAB 5-325 M1 EACH PO; -MIRALAX17 G2 PO; -SENNA8.6 M1 PO; -SIMVASTATIN40 MG PO
[2016-09-27 15:28] LABS: ALBUMIN SERUM 3.6 g/dL (3.5-5.0); ALKALINE PHOSPHATASE 54 U/L (32-92); ALT (SGPT) 12 U/L (10-40); AST (SGOT) 14 U/L (10-42); BILIRUBIN, DIRECT 0.1 mg/dL (0.0-0.2); BILIRUBIN,INDIRECT 0.3 mg/dL (0.0-0.9); BILIRUBIN,TOTAL 0.4 mg/dL (0.2-2.0); BLOOD UREA NITROGEN 16 mg/dL (9-23); CALCIUM SERUM 8.7 mg/dL (8.4-10.2); CARBON DIOXIDE 21 mmol/L (22-31); CHLORIDE 102 mmol/L (100-111); CREATININE SERUM 0.8 mg/dL (0.6-1.4); GLOM FILT RATE Estimated ABOVE60 mL/min (>60); GLUCOSE FASTING 283 mg/dL (70-110); POTASSIUM 3.9 mmol/L (3.5-5.1); PROTEIN TOTAL SERUM 7.6 g/dL (6.0-8.3); SODIUM 132 mmol/L (135-145)
[2016-10-16] MEDS ORDERED: ASPIRIN81 M2 PO (12:01)
== END 2016-09-27 17:43 | disposition home or self-care (01) ==
LOC: CED 15:25
PROVIDERS: Emergency Medicine
DX: K80.50 Calculus of bile duct without cholangitis or cholecystitis without obstruction (principal); I25.2 Old myocardial infarction; F17.200 Nicotine dependence, unspecified, uncomplicated; Z98.890 Other specified postprocedural states
CPT/HCPCS: 36415; 80048; 80076; 85025; 99284

== ENCOUNTER 2016-10-19 06:45 | Observation (INO) | payer OTHER ==
--- NOTE | ~2016-10-19 | OR ---
Unit #: [id number] #: [id number] Patient: LILLIAN STEVENS [id number] [facility] [address] [place], [place] [address] [id number] MR#: [id number] NAME: LILLIAN STEVENS ROOM: [facility] Date of Procedure: 10/19/2016 Admission Date: 10/19/2016 Surgeon: Danyel Hurley M.D. : 1970 Attending Physician: Danyel Hurley M.D. Primary Care Physician: Jo Ann Gallardo M.D. OPERATIVE REPORT PREOPERATIVE DIAGNOSES Chronic cholecystitis with cholelithiasis. POSTOPERATIVE DIAGNOSES Chronic cholecystitis with cholelithiasis. PROCEDURE PERFORMED Laparoscopic cholecystectomy and Enrike-Leonard drain placement. EDUCATIONAL INSTITUTION CURATOR Glenna. ANESTHESIA General endotracheal anesthesia. ESTIMATED BLOOD LOSS 100 mL. INDICATIONS FOR PROCEDURE A 46-year-old female, who is morbidly obese and diabetic, had symptoms of right upper quadrant pain and nausea. Ultrasound revealed a contracted gallbladder with dense shadowing consistent with stones. Preoperative liver chemistries were unremarkable. DESCRIPTION OF PROCEDURE The patient was admitted to [facility], positively identified, and transported to the operating room, and after induction of general endotracheal anesthesia, she received antibiotics per SCIP protocol. She was prepped and draped in usual sterile fashion. A 5-mm supraumbilical incision was made. Veress needle was placed. Pneumoperitoneum was created. Then, a 5-mm trocar was placed. Laparoscope was introduced into the peritoneal cavity. Under direct vision, the epigastric and lateral ports were placed. The gallbladder was contracted and the lumen was almost completely filled with stones making grasping the gallbladder very difficult. She also had marked fatty infiltration of the liver making it difficult to elevate the gallbladder; however, using forceps with teeth, we were able to grasp the gallbladder and elevated. Adhesions were taken down. The infundibulum was identified and retracted laterally. I was able to dissect out the triangle of Calot and clearly identify the cystic duct, gallbladder, and cystic duct-common duct junction and the posteriorly placed cystic artery. The critical view of safety was clearly identified and photodocumented. I swept the cystic Unit #: [id number] #: [id number] Patient: LILLIAN STEVENS duct upwards and there were no stones. A single clip was placed in the cystic duct centered to gallbladder and 3 clips were placed distally and the cystic duct was sharply divided. Posteriorly, the cystic artery was doubly clipped and divided. The gallbladder was tightly adherent to the liver bed and the liver bed was very oozy. There were several venous sinuses that caused bleeding and elevated cautery level to control the bleeding. Once the bleeding was adequately controlled and the gallbladder was removed from the hepatic fossa, the gallbladder was placed in an EndoCatch bag and brought out through the epigastric port. I then recreated the pneumoperitoneum. We elevated the liver using irrigation and suction. All bleeding points were controlled with the cautery, but because of the friability of the liver after suctioning out the clot, FloSeal was placed over the hepatic fossa. After a few minutes, we rechecked and there was adequate hemostasis. The rest of the bloody drainage was removed using the suction device, but because of the amount of bleeding and to watch for any subsequent bleeding through the lateral trocar site, a Enrike-Leonard drain was placed in the subhepatic fossa. The drain was secured to the skin with 2-0 silk suture. After placement of the drain, we rechecked and again there was excellent hemostasis. I then reduced the pneumoperitoneum, removed laparoscope and trocars. The fascial defect in the epigastrium was closed with 0 Vicryl interrupted sutures. 0.5% Marcaine with epinephrine was infiltrated into the each trocar site. The skin was closed with sterile skin raúl and dry sterile bandages were placed. Sponges and needle counts were correct x3. The patient was transported to recovery in stable condition. There was no family available at the end of the case to discuss the findings with. She will be admitted overnight for observation for bleeding. Dictated by... Rodriguez Patel/armin TD: 10/20/2016 02:02 JOB #: [id number] OPERATIVE REPORT Page 1 of 1 X Danyel Hurley MD X PROCEDURE OPERATIVE NOTE
--- NOTE | ~2016-10-19 | BMI ---
[facility] Nutrition Therapy DATE: 10/20/16 Patient: LILLIAN CARMONA CHARLY Physician: RICHARD Address: [address] Room/Bed: [address] [place] [address], Zip: [place] [address] Admit Date: 10/19/16 Date of : 74 Height: 5 7 Weight: 311 141.2 HIGH BMI NOTE: DX: 46 yo female admitted for gallstones ANTHROPOMETRICS: Ht: 5'7" Wt: 141.4 kg (311#) BMI: 48.8 DIET: Consistent carb INTERVENTION: Consistent carb RECOMMENDATIONS: 1. Continue consistent carb diet to promote gradual weight loss towards healthy BMI. RD will f/u per protocol. Respectfully, Bozena Aguilar, Grant Coordinator Food and Nutritional Services [facility] cc: client file
--- NOTE | ~2016-10-19 | DS ---
Unit #: [id number] #: [id number] Patient: LILLIAN STEVENS [id number] [address] [place], [place] [address] [id number] I MR#: [id number] NAME: LILLIAN STEVENS. ROOM: [facility] Age: 46 Sex: F Admission Date: 10/19/2016 : 1970 Discharge Date: 10/20/2016 Attending Physician: Danyel Hurley M.D. Primary Care Physician: Jo Ann Gallardo M.D. DISCHARGE SUMMARY HISTORY AND HOSPITAL COURSE The patient is a 46-year-old lady who is morbidly obese who presented with gallbladder disease in the office. She was scheduled for outpatient laparoscopic cholecystectomy, came in the morning of surgery, where she successfully underwent laparoscopic cholecystectomy. However, she had severe fatty infiltration of liver and in dissecting the gallbladder out of liver bed, she had some bleeding from some venous sinuses and just oozing from the surface of the liver. This was controlled with cautery and FloSeal thrombin solution, but because of the amount of the bleeding and because of the fatty liver, a drain was placed and she was put on observation overnight to observe for bleeding. Overnight, the patient remained afebrile with stable vital signs. She tolerated regular diet and was passing flatus. She only had 50 mL of serosanguineous output overnight. Her abdomen is benign to exam. Her hemoglobin is stable at 12 and her chemistries were within normal limits. She will be discharged home today with instructions to undergo diet and activity as tolerated. She may shower and use laxatives as needed. She is to follow up in the office in 1 to 2 weeks. Prescription for hydrocodone was left for pain control. A med reconciliation sheet was completed. Dictated by... Danyel Hurley M.D. MANOHAR/armin TD: 10/20/2016 22:36 JOB #: [id number] DISCHARGE SUMMARY Page 1 of 1 X Danyel Hurley MD X DISCHARGE SUMMARY
[~2016-10-19 06:45] MED LIST changes: +ASPIRIN81 M2 PO
[2016-10-19 08:00] LABS: BUN/CREATININE RATIO 14.44; CREATININE SERUM 0.9 mg/dL (0.6-1.4); GLOM FILT RATE Estimated 77.8 mL/min (>60)
[2016-10-20 02:50] LABS: ALBUMIN SERUM 3.4 g/dL (3.5-5.0); BILIRUBIN,TOTAL 0.6 mg/dL (0.2-2.0); CALCIUM SERUM 8.3 mg/dL (8.4-10.2); CREATININE SERUM 1.2 mg/dL (0.6-1.4); GLOM FILT RATE Estimated 54.9 mL/min (>60); MAGNESIUM 1.8 mg/dL (1.6-3.0); PHOSPHOROUS 3.4 mg/dL (2.5-4.6); POTASSIUM 4.6 mmol/L (3.5-5.1); PROTEIN TOTAL SERUM 7.3 g/dL (6.0-8.3)
[2016-10-20 02:52] LABS: HEMATOCRIT 37.4 % (35.0-45.0); MEAN CELL VOLUME 92.5 FL (83-96); MEAN CORPUSCULAR HEMOGLOBIN 29.7 PG (28-34); MEAN CORPUSCULAR HGB CONC 32.1 g/dL (30-36); MEAN PLATELET VOLUME 9.1 FL (6.5-11.5); RED BLOOD COUNT 4.05 X10e (3.90-5.30); WHITE BLOOD COUNT 19.3 X10e3 (4.0-10.5)
[2016-10-20] MEDS ORDERED: LORTAB 5-325 M1 EACH PO (11:14)
[2016-10-20] MEDS ORDERED: MIRALAX17 G2 PO (11:17)
== END 2016-10-20 12:05 | disposition home or self-care (01) | DRG 418 ==
LOC: CSUR 06:45 → CPACUOF 11:36 → C4B 13:28
PROVIDERS: Specialist
PROC: 0FT44ZZ Resection of Gallbladder, Percutaneous Endoscopic Approach (ICD-10-PCS; principal; 2016-10-19 10:30)
DX: K80.10 Calculus of gallbladder with chronic cholecystitis without obstruction (principal); Z68.42 Body mass index [BMI] 45.0-49.9, adult; K76.0 Fatty (change of) liver, not elsewhere classified; E66.01 Morbid (severe) obesity due to excess calories; E11.9 Type 2 diabetes mellitus without complications; I10 Essential (primary) hypertension; E78.5 Hyperlipidemia, unspecified; F17.210 Nicotine dependence, cigarettes, uncomplicated; I25.2 Old myocardial infarction
CPT/HCPCS: 80048; 80053; 82947; 83735; 84100; 84703; 85027; 88304; J0330; J0690; J1100; J1644; J1815; J1885; J2250; J2270; J2405; J2710; J3010

== ENCOUNTER 2016-11-15 12:42 | Inpatient (IN) | payer OTHER ==
--- NOTE | ~2016-11-15 | DS ---
Unit #: [id number] #: [id number] Patient: LILLIAN STEVENS [id number] [address] [place], [place] [address] [id number] I MR#: [id number] NAME: LILLIAN STEVENS ROOM: 303 Age: 46 Sex: F Admission Date: 11/15/2016 : 1970 Discharge Date: 11/20/2016 Attending Physician: Jo Ann Gallardo M.D. Primary Care Physician: Jo Ann Gallardo M.D. DISCHARGE SUMMARY FINAL DIAGNOSES 1. Right lower extremity deep venous thrombosis. 2. History of left upper extremity arterial thrombosis, status post embolectomy. 3. History of hypertension. 4. History of diabetes mellitus type 2. 5. Hyperlipidemia. 6. Morbid obesity. DISCHARGE MEDICATIONS 1. Eliquis 5 mg b.i.d. 2. Imdur 30 mg daily. 3. Aspirin 81 mg daily. 4. Lantus 20 units subcu at bedtime. 5. Lisinopril 5 mg daily. 6. Hydralazine 25 mg daily. 7. Simvastatin 40 mg daily. 8. Metoprolol 25 mg b.i.d. CONSULTATION DURING HOSPITALIZATION Dr. Avila - Hematology Services. ADMITTING PHYSICIAN Dr. Herrera. DISCHARGING PHYSICIAN Dr. Gallardo. HOSPITAL COURSE Ms. Radford is a 46-year-old, morbidly obese female, who came to ER because of pain in the right lower extremity. The patient was diagnosed with occlusive thrombus in the superficial femoral and popliteal veins and below the knee anteriorly, posterior tibial and peroneal vein. Patient was placed on Lovenox 120 mg subcu b.i.d. Patient was also started on Coumadin. Dr. Avila was consulted. Patient will need long term care social worker anticoagulation therapy. Patient has had left upper extremity arterial thrombosis requiring embolectomy. She is high risk for DVT and PE because of morbid obesity also. Patient is being started on Eliquis 5 mg p.o. b.i.d. I had discussion with Dr. Roman who is agreeable. Patient will have hypercoagulable workup done in his clinic. This information was discussed at length with patient. EXAMINATION ON DISCHARGE Blood pressure 141/77, respiratory rate 20, pulse is 84, temperature 98.1, Unit #: [id number] #: [id number] Patient: LILLIAN TSEVENS oxygen saturation 96%. CHEST has fair air entry. CVS is regular rhythm. ABDOMEN is obese and soft. EXTREMITIES - trace edema. DISCHARGE INSTRUCTIONS 1. Follow up with primary care provider in one week. 2. Medication as per Med Rec. Plan of care discussed with patient at length. Dictated by... Rodriguez Gama/adama TD: 11/21/2016 08:32 JOB #: [id number] DISCHARGE SUMMARY Page 1 of 1 X Jo Ann Gallardo MD X DISCHARGE SUMMARY
--- NOTE | ~2016-11-15 | BMI ---
[facility] Nutrition Therapy DATE: 11/16/16 Patient: LILLIAN Langston MATHEW PARKS Physician: RESHMA Address: [facility] [address] Room/Bed: [address] [place] [address], Zip: [place] [address] Admit Date: 11/15/16 Date of : 74 Height: 5 7 Weight: 306 139 HIGH BMI NOTE: ANTHROPOMETRICS: HT: 67" WT: 139 KG BMI: 48 DIET: HEART HEALTHY RECOMMENDATIONS: 1. CONTINUE CURRENT DIET TO PROMOTE GRADUAL WEIGHT LOSS. Respectfully, NORA ROSS RD, LD Food and Nutritional Services [facility] cc: client file
--- NOTE | ~2016-11-15 | US85 ---
[facility] A Service of [facility] RADIOLOGY TEXT RESULTS PATIENT: LILLIAN STEVENS [facility]ATION: [facility] : 74 UNIT #: [id number] AGE: [address]: Jo Ann Gallardo MD SEX: F ORDER DR: [id number] [facility] [address] [place], [place] [address] [id number] E MR#: [id number] Acc #: [id number] NAME: LILLIAN STEVENS. : 1970 SEX: F STUDY DATE/TIME: 11/15/2016 12:56 UNIT: RACHNA ROOM: STUDY DESCRIPTION: [facility] Radionomy Unilat or Ltd Stdy Attending Physician: Sanju Silva Ordering Physician: Sanju Silva Primary Care Physician: Jo Ann Gallardo M.D. MEDICAL IMAGING REPORT This report is preliminary unless electronic signature is present EXAM Right lower extremity venous Doppler, 11/15/16 COMPARISON None. CLINICAL HISTORY Right leg pain and swelling for 4 days previous history of DVT. PROCEDURE Trivedi-scale imaging, color-Doppler flow imaging and Doppler waveform analysis. FINDINGS While the superficial saphenous vein is normal, along with the common and deep femoral vein, there is no occlusive thrombus in the superficial femoral and popliteal veins and in the below-knee tibial and peroneal veins. IMPRESSION Abnormal exam positive for occlusive deep venous thrombus in the superficial femoral and popliteal veins and below-knee anterior, posterior tibial and peroneal vein. Dictated by... Steve Tafoya M.D. THIS IS AN ELECTRONICALLY VERIFIED REPORT Steve Tafoya M.D. at 11/16/2016 3:52 PM TEV/ea [facility] A Service [facility][1] RADIOLOGY TEXT RESULTS PATIENT: LILLIAN STEVENS LOCATION: [facility] 303 : 74 UNIT #: [id number] AGE: [address]: Jo Ann Gallardo MD SEX: F ORDER DR: TD: 11/15/2016 14:41 JOB #: [id number] MEDICAL IMAGING REPORT Page 1 of 1 COPY
--- NOTE | ~2016-11-15 | HP ---
Unit #: [id number] #: [id number] Patient: LILLIAN STEVENS [id number] [address] [address] [id number] I MR#: [id number] NAME: LILLIAN STEVENS. ROOM: 42520 Age: 46 Sex: F Admission Date: 11/15/2016 : 1970 Attending Physician: Jo Ann Gallardo M.D. Primary Care Physician: Jo Ann Gallardo M.D. HISTORY AND PHYSICAL ADMISSION DIAGNOSES 1. Acute right lower extremity deep venous thrombosis. 2. History of arterial clot, status post thrombectomy, status post chronic anticoagulation x1 year. 3. History of hypertension. 4. Diabetes. 5. Dyslipidemia. 6. Obesity. HISTORY OF PRESENT ILLNESS Miss Martha Radford is a 46-year-old female, patient of Dr. Jo Ann Gallardo, who comes to the emergency room with the complaints of right lower extremity swelling and tenderness. Upon evaluation in the ER with positive Homans sign and calf tenderness, an ultrasound was performed which showed acute lower extremity extensive DVT. Patient denies any other symptoms. He denies any shortness of air, dyspnea, fever, chills, nausea, vomiting, diarrhea, or abdominal pain. He denies any syncopal episodes or presyncope and denies any dysuria. So, a 12-point review of systems on this patient is basically negative except as above. PAST MEDICAL HISTORY 1. Hypertension. 2. Diabetes. 3. Dyslipidemia. 4. Arterial clot. 5. Questionable history of MO in the past. PAST SURGICAL HISTORY 1. Thrombectomy. 2. Cholecystectomy. HOME MEDICATIONS 1. Metoprolol. 2. Hydralazine. 3. Aspirin. 4. Lantus. 5. Simvastatin. 6. Isosorbide mononitrate. 7. Lisinopril. ALLERGIES No known drug allergies. SOCIAL HISTORY Unit #: [id number] #: [id number] Patient: LILLIAN STEVENS No current history of tobacco, alcohol, or illicit drugs. FAMILY HISTORY Unremarkable except for blood clot disorder in her maternal aunt. PHYSICAL EXAMINATION GENERAL: Patient is a 46-year-old female in no acute distress. VITAL SIGNS: Blood pressure 112/62, heart rate 92, respirations 18, temperature 98, and 100% on room air. HEENT: Head is atraumatic. Pupils equal, round, and reactive to light and accommodation. Extraocular muscles intact. Oropharynx clear. NECK: Supple. No mass, no JVD, and no bruits. CHEST: Clear to auscultation bilaterally. CARDIOVASCULAR: S1 and S2. No murmurs. ABDOMEN: Soft, nontender, and nondistended. LOWER EXTREMITIES: Right lower extremity swelling with positive Homans sign and positive calf tenderness. NEUROLOGIC: Grossly intact with no focal deficits. DIAGNOSTIC STUDIES LABORATORY: CBC and BMP reviewed and unremarkable. IMAGING: Ultrasound as above. ASSESSMENT AND PLAN 1. Right lower extremity acute deep venous thrombosis. Started on treatment dose of Lovenox. Considering the fact of the previous blood clot disorder, will get a Hematology evaluation with Dr. Schwartz. 2. History of arterial clot in the past, status post thrombectomy, status post chronic anticoagulation for one year from 2013 to 2014. 3. Hypertension. Continue home medications. 4. Diabetes. Continue home insulin regime. 5. Dyslipidemia. Continue statin. 6. Questionable history of coronary artery disease. Continue beta shanthi, continue Imdur, and continue aspirin. 7. Obesity. Counseled on the importance of losing weight. 8. Gastrointestinal and deep venous thrombosis prophylaxis. Will continue Lovenox and start on proton pump inhibitor. 1. Dictated by Rodriguez Ahmadi/sofya TD: 11/15/2016 18:53 JOB #: [id number] HISTORY AND PHYSICAL Page 1 of 1 X Raj Herrera MD X HISTORY AND PHYSICAL
--- NOTE | ~2016-11-15 | CO ---
Unit #: [id number] #: [id number] Patient: LILLIAN STEVENS [id number] [address] [place], [place] [address] [id number] I MR#: [id number] NAME: LILLIAN STEVENS ROOM: 303 Age: 46 Sex: F Admission Date: 11/15/2016 : 1970 Attending Physician: Jo Ann Gallardo M.D. Primary Care Physician: Jo Ann Gallardo M.D. CONSULTATION REPORT CHIEF COMPLAINT Right lower extremity DVT, history of left upper extremity arterial thrombosis embolectomy. HISTORY OF PRESENT ILLNESS This is a 46-year-old female who had a left upper extremity arterial thrombosis. It was unprovoked. This was during February 2014. Patient had an embolectomy. Now patient comes with a right lower extremity swelling, pain, edema. Patient had a venous Doppler ultrasound on 11/15/2016. It showed occlusive thrombus in the superficial femoral and popliteal veins and itfvi-lrg-ngyx anterior, posterior tibial and peroneal vein. She is taking Lovenox. At present no chest pain, no shortness of breath, she is feeling better. REVIEW OF SYSTEMS CONSTITUTIONAL: No fever, no chills, no sweats, no weight loss. EYES: No visual symptoms. EARS, NOSE AND THROAT: There is no runny nose or sore throat or difficulty hearing. CARDIOVASCULAR: No chest pain. No shortness of breath. No palpitations. No orthopnea. No PND. RESPIRATORY: No cough. No wheezing. No hemoptysis. GASTROINTESTINAL: No nausea, vomiting, diarrhea, constipation, hematochezia or melena. GENITOURINARY: No urinary frequency, hesitancy or urgency. No blood in the urine. MUSCULOSKELETAL: aspirin mentioned above. NEUROLOGIC: No headache. No numbness or tingling. No weakness. No seizure. PSYCHIATRIC: No anxiety, depression or mood disturbance. ENDOCRINE: No excessive urination or thirst. DERMATOLOGIC: No rash or change in the skin. ALLERGIC/IMMUNOLOGIC: No symptoms. HEMATOLOGIC/LYMPHATIC: Denies any symptoms. PAST MEDICAL HISTORY 1. Arterial thrombosis left upper extremity during February 2014, status post embolectomy, now DVT. 2. Diabetes. 3. Hypertension. 4. ME. Unit #: [id number] #: [id number] Patient: LILLIAN STEVENS ALLERGIES None. SOCIAL HISTORY Patient used to smoke two packs per day for 12 years, now she is cutting down. PAST SURGICAL HISTORY Cholecystectomy. FAMILY HISTORY Negative for cancer. No one in the family has a thrombosis or bleeding. PHYSICAL EXAMINATION GENERAL: Patient is comfortable. ECOG is 0. The patient is pleasant. VITAL SIGNS: Afebrile, pulse 87, respiratory rate 18, O2 sat on room air 99%, blood pressure 135/77. HEENT: Moist mucosa. Pupils equally reactive to light. Extraocular muscles intact. Sclerae anicteric. No obvious bleeding from nasal mucosa or oral mucosa. Scalp normal. Hearing normal. NECK: No JVD. No lymphadenopathy. LYMPHATIC/HEMATOLOGIC: There is no palpable adenopathy in the neck, axilla or inguinal area. CARDIOVASCULAR: S1, S2. Regular rate and rhythm. No S3 or S4. RESPIRATORY: Chest symmetrical, normal. Clear to auscultation bilaterally. No wheezes, no rales, no rhonchi. No dullness to percussion. ABDOMEN/GASTROINTESTINAL: Abdomen is soft, nontender, nondistended. No hepatosplenomegaly. EXTREMITIES: Right lower extremity swelling and tenderness. No warmth. NEUROLOGICAL: Patient is alert, awake and oriented x3. Cranial nerves II-XII are intact. Sensory grossly intact. Motor is 4/5 in all four extremities. Gait is normal. Station is normal. Language is normal. Memory is normal. DTRs +2 in all four extremities. MUSCULOSKELETAL: No joint swelling. No bony tenderness. No muscle tenderness. SKIN: No petechiae, no rash, no ecchymosis. PSYCHIATRIC: No anxiety. No delusions or hallucinations. There is no agitation. Eye contact is normal. Affect is appropriate. There is no flight of ideas. DIAGNOSTIC STUDIES IMAGING: Study as mentioned above. LABORATORY: WBC 11.9, hemoglobin 12.4, platelets 237, INR 1.0, creatinine 1.0, LFTs are normal. ASSESSMENT This is a 46-year-old female who has now right lower extremity DVT. Patient has a history of left upper extremity arterial thrombosis requiring embolectomy. She has no prior history of a PE. No one in the family has a thrombosis. DISCUSSION I had a pleasant discussion with the patient regarding her future workup. She is morbidly obese. She is at high risk for thrombosis. Her weight is about 300 pounds. She is at high risk for DVT and PE. PLAN Unit #: [id number] #: [id number] Patient: LILLIAN STEVENS I will cutdown the Lovenox to 120 mg subcu b.i.d. Patient will go home on Coumadin. I had an extensive discussion with Dr. Herrera. I will follow the patient as outpatient next week; will do hypercoagulable workup in the clinic. Dictated by... Rodriguez Lloyd/pia TD: 11/17/2016 16:48 JOB #: [id number] CONSULTATION REPORT Page 1 of 1 X Demetrius Avila MD X CONSULTATION REPORT
[~2016-11-15 12:42] MED LIST changes: +LORTAB 5-325 M1 EACH PO; +MIRALAX17 G2 PO
[2016-11-15 15:03] LABS: BASOPHIL# 0.1 X10e3 (0-0.3); EOSINOPHIL# 0.7 X10e3 (0-0.7); EOSINOPHIL% 4.7 % (0.0-7.0); HEMOGLOBIN 13.1 gm/dL (12.0-16.0); LYMPHOCYTE# 4.1 X10e3 (1.0-3.5); LYMPHOCYTE% 27.5 % (17.0-45.0); MEAN CELL VOLUME 90.4 FL (83-96); MEAN PLATELET VOLUME 8.8 FL (6.5-11.5); MONOCYTE# 1.1 X10e3 (0-1.0); MONOCYTE% 7.2 % (3.0-12.0); NEUTROPHIL# 8.9 X10e3 (1.5-7.1); NEUTROPHIL% 59.6 % (40-75); PLATELET COUNT 267 X10e3 (140-420); RED BLOOD COUNT 4.54 X10e (3.90-5.30); RED CELL DISTRIBUTION WIDTH 13.9 % (11.0-15.5); WHITE BLOOD COUNT 14.9 X10e3 (4.0-10.5)
[2016-11-15 15:05] LABS: DIFF IND NO
[2016-11-15 15:16] LABS: PARTIAL THROMBOPLASTIN TIME 26.1 SECONDS (23.5-31.3); PROTHROMBIN TIME (PATIENT) 10.2 SECONDS (9.6-11.5)
[2016-11-15 15:24] LABS: CALCIUM SERUM 9.3 mg/dL (8.4-10.2); GLOM FILT RATE Estimated 68.5 mL/min (>60); POTASSIUM 4.2 mmol/L (3.5-5.1)
[2016-11-15] MEDS ORDERED: HYDRALAZINE HCL25 MG PO (16:10)
[2016-11-15] MEDS ORDERED: METOPROLOL SUCC25 MG PO (16:10)
[2016-11-15] MEDS ORDERED: ASPIRIN81 MG PO (16:11)
[2016-11-15] MEDS ORDERED: SIMVASTATIN40 MG PO (16:11)
[2016-11-15] MEDS ORDERED: ISORDIL40 MG PO (16:11)
[2016-11-15] MEDS ORDERED: LANTUS100 U/ML SUBQ (16:11)
[2016-11-15] MEDS ORDERED: ISOSORBIDE MONO30 M1 PO (16:12)
[2016-11-15] MEDS ORDERED: LISINOPRIL5 MG PO (16:12)
[2016-11-16 06:21] LABS: BASOPHIL# 0.1 X10e3 (0-0.3); BASOPHIL% 1.1 % (0-2.5); EOSINOPHIL# 0.7 X10e3 (0-0.7); EOSINOPHIL% 6.2 % (0.0-7.0); HEMATOCRIT 38.1 % (35.0-45.0); HEMOGLOBIN 12.3 gm/dL (12.0-16.0); LYMPHOCYTE# 3.3 X10e3 (1.0-3.5); LYMPHOCYTE% 28.5 % (17.0-45.0); MEAN CELL VOLUME 89.7 FL (83-96); MEAN CORPUSCULAR HEMOGLOBIN 29.1 PG (28-34); MEAN CORPUSCULAR HGB CONC 32.4 g/dL (30-36); MEAN PLATELET VOLUME 8.8 FL (6.5-11.5); MONOCYTE# 0.8 X10e3 (0-1.0); MONOCYTE% 7.2 % (3.0-12.0); NEUTROPHIL# 6.5 X10e3 (1.5-7.1); PLATELET COUNT 235 X10e3 (140-420); RED BLOOD COUNT 4.25 X10e (3.90-5.30); WHITE BLOOD COUNT 11.5 X10e3 (4.0-10.5)
[2016-11-16 06:27] LABS: DIFF IND NO
[2016-11-16 06:54] LABS: CALCIUM SERUM 8.9 mg/dL (8.4-10.2); GLOM FILT RATE Estimated 68.5 mL/min (>60); POTASSIUM 4.2 mmol/L (3.5-5.1)
[2016-11-17 05:24] LABS: HEMATOCRIT 38.9 % (35.0-45.0); HEMOGLOBIN 12.5 gm/dL (12.0-16.0); MEAN CELL VOLUME 90.3 FL (83-96); MEAN CORPUSCULAR HEMOGLOBIN 29.1 PG (28-34); MEAN CORPUSCULAR HGB CONC 32.2 g/dL (30-36); MEAN PLATELET VOLUME 8.8 FL (6.5-11.5); RED BLOOD COUNT 4.31 X10e (3.90-5.30); RED CELL DISTRIBUTION WIDTH 13.7 % (11.0-15.5); WHITE BLOOD COUNT 11.9 X10e3 (4.0-10.5)
[2016-11-17 06:48] LABS: CALCIUM SERUM 8.9 mg/dL (8.4-10.2); GLOM FILT RATE Estimated 68.5 mL/min (>60); POTASSIUM 4.6 mmol/L (3.5-5.1)
[2016-11-18 05:58] LABS: BASOPHIL# 0.1 X10e3 (0-0.3); BASOPHIL% 1.1 % (0-2.5); EOSINOPHIL# 0.7 X10e3 (0-0.7); EOSINOPHIL% 6.4 % (0.0-7.0); HEMATOCRIT 39.3 % (35.0-45.0); HEMOGLOBIN 12.6 gm/dL (12.0-16.0); LYMPHOCYTE# 2.9 X10e3 (1.0-3.5); LYMPHOCYTE% 26.6 % (17.0-45.0); MEAN CELL VOLUME 90.7 FL (83-96); MONOCYTE# 0.8 X10e3 (0-1.0); MONOCYTE% 7.6 % (3.0-12.0); NEUTROPHIL# 6.5 X10e3 (1.5-7.1); NEUTROPHIL% 58.3 % (40-75); PLATELET COUNT 249 X10e3 (140-420); RED BLOOD COUNT 4.34 X10e (3.90-5.30); RED CELL DISTRIBUTION WIDTH 13.6 % (11.0-15.5); WHITE BLOOD COUNT 11.1 X10e3 (4.0-10.5)
[2016-11-18 06:07] LABS: DIFF IND NO
[2016-11-18 06:13] LABS: INR 0.9; PROTHROMBIN TIME (PATIENT) 9.9 SECONDS (9.6-11.5)
[2016-11-18 06:51] LABS: ALBUMIN SERUM 3.3 g/dL (3.5-5.0); BILIRUBIN,TOTAL 0.4 mg/dL (0.2-2.0); BUN/CREATININE RATIO 18.88; CALCIUM SERUM 8.9 mg/dL (8.4-10.2); CREATININE SERUM 0.9 mg/dL (0.6-1.4); GLOM FILT RATE Estimated 77.8 mL/min (>60); POTASSIUM 4.6 mmol/L (3.5-5.1); PROTEIN TOTAL SERUM 6.9 g/dL (6.0-8.3)
[2016-11-19 05:29] LABS: PROTHROMBIN TIME (PATIENT) 10.7 SECONDS (9.6-11.5)
[2016-11-20 05:40] LABS: INR 1.1; PROTHROMBIN TIME (PATIENT) 11.5 SECONDS (9.6-11.5)
[2016-11-20] MEDS ORDERED: ELIQUIS5 MG PO (11:20)
== END 2016-11-20 12:05 | disposition home or self-care (01) | DRG 300 ==
LOC: CED 12:42 → CEDOF 15:37 → C3A PCU 20:31
PROVIDERS: Hospitalist; Internal Medicine; Nurse Practitioner; Physician Assistant Medical
DX: I82.411 Acute embolism and thrombosis of right femoral vein (principal); Z68.42 Body mass index [BMI] 45.0-49.9, adult; I82.431 Acute embolism and thrombosis of right popliteal vein; I10 Essential (primary) hypertension; E78.5 Hyperlipidemia, unspecified; E11.9 Type 2 diabetes mellitus without complications; E66.01 Morbid (severe) obesity due to excess calories; I25.2 Old myocardial infarction; Z90.49 Acquired absence of other specified parts of digestive tract; Z79.82 Long term (current) use of aspirin; Z79.4 Long term (current) use of insulin; F17.210 Nicotine dependence, cigarettes, uncomplicated; Z71.3 Dietary counseling and surveillance; Z86.718 Personal history of other venous thrombosis and embolism; I82.441 Acute embolism and thrombosis of right tibial vein
CPT/HCPCS: 36415; 80048; 80053; 82947; 85025; 85027; 85610; 85730; 93971; 96372; 99285; J1650; J1815

== ENCOUNTER → 2016-12-22 | Outpatient (CLI) | payer OTHER ==
[~2016-12-22] MED LIST changes: +ASPIRIN81 MG PO; +ELIQUIS5 MG PO; +IMDUR-ER30 M1 PO; +ISORDIL40 MG PO; +ISOSORBIDE MONO30 M1 PO; +LANTUS SOL100 UNIT/1 SUBQ; +LISINOPRIL PO; +LOPRESSOR PO; +SENNA8.6 M1 PO; +SIMVASTATIN40 MG PO
--- NOTE | ~2016-12-22 | MY11 ---
[facility] A Service of [facility] RADIOLOGY TEXT RESULTS PATIENT: LILLIAN STEVENS LOCATION: [facility] : 74 UNIT #: [id number] AGE: [address]: NATALIA HODGES SEX: F ORDER DR: [id number] [facility] [address] [place], [place] [address] [id number] O MR#: [id number] Acc #: [id number] NAME: LILLIAN STEVENS. : 1970 SEX: F STUDY DATE/TIME: 12/22/2016 11:32 UNIT: [facility] ROOM: STUDY DESCRIPTION: MY Mammogram Screening Dig Andrés Attending Physician: Gayle Everett Referring Physician: Jo Ann Gallardo M.D. Ordering Physician: Gayle Everett Primary Care Physician: Jo Ann Gallardo M.D. MEDICAL IMAGING REPORT This report is preliminary unless electronic signature is present EXAMINATION Bilateral digital screening mammogram with CAD. DATE 12/22/2016 HISTORY Family history of breast cancer in a paternal grandmother at the age of 65. No personal history of breast cancer or current complaints. COMPARISON None. This is the patient's baseline screening study. FINDINGS CC and MLO views were obtained of each breast utilizing digital technique and reviewed with an FDA-approved CAD device. Breast parenchyma is predominately fat replaced. No suspicious nodule is seen. Enlarged vessels are demonstrated within the superior hemisphere left breast posterior third near the axilla. No suspicious microcalcifications. No architectural distortion features are seen. IMPRESSION BIRADS 2. Benign findings. Routine bilateral screening mammogram is recommended in 1 year. Patients over the age of 40 are entered into a reminder system with target due date for the next mammogram. A result letter will also be sent to the patient. BIRADS: 2 Benign findings. [facility] A Service [facility] RADIOLOGY TEXT RESULTS PATIENT: LILLIAN STEVENS LOCATION: [facility] : 74 UNIT #: [id number] AGE: [address]: NATALIA HODGES SEX: F ORDER DR: Dictated by... Hemalatha Dubon M.D. THIS IS AN ELECTRONICALLY VERIFIED REPORT Hemlaatha Dubon M.D. at 12/22/2016 4:35 PM MAITE/perez TD: 12/22/2016 16:15 JOB #: [id number] MEDICAL IMAGING REPORT Page 1 of 1 COPY
== END | disposition home or self-care (01) ==
LOC: CWCC 11:02
DX: Z12.31 Encounter for screening mammogram for malignant neoplasm of breast (principal); Z80.3 Family history of malignant neoplasm of breast
CPT/HCPCS: G0202

== ENCOUNTER 2017-01-08 17:23 | Emergency (ER) | payer OTHER ==
--- NOTE | ~2017-01-08 | EKG ---
PATIENT: LILLIAN STEVENS UNIT #: [id number] Ventricular Rate: 100 BPM Atrial Rate: 100 BPM P-R Interval: 130 ms QRS Duration: 88 ms Q-T Interval: 364 ms QTC Calculation(Bezet): 469 ms P [place]: 39 degrees Calculated R [place]: 23 degrees Calculated T [place]: 28 degrees Diagnosis Line: Normal sinus rhythm Diagnosis Line: Low voltage QRS Diagnosis Line: Borderline ECG Diagnosis Line: Diagnosis Line: Confirmed by MARY JANE WESLEY MD ([id number]) on Diagnosis Line: 01/08/2017 10:23:31 PM INTERPRETING MD: JOHAN
--- NOTE | ~2017-01-08 | CR63 ---
[facility] A Service of [facility] RADIOLOGY TEXT RESULTS PATIENT: LILLIAN STEVENS LOCATION: [facility] : 74 UNIT #: [id number] AGE: [address]: Radha Martinez MD SEX: F ORDER DR: [id number] [facility] [address] [place], [place] [address] [id number] E MR#: [id number] Acc #: [id number] NAME: LILLIAN STEVENS : 1970 SEX: F STUDY DATE/TIME: 01/08/2017 20:16 UNIT: [facility] ROOM: STUDY DESCRIPTION: CR Chest 2 View Attending Physician: Radha Martinez M.D. Ordering Physician: Ike Malagon M.D. Primary Care Physician: Jo Ann Gallardo M.D. MEDICAL IMAGING REPORT This report is preliminary unless electronic signature is present EXAM Two-view chest. HISTORY Shortness of air, chest pain, left arm pain for 2 days. COMPARISON 09/10/2016 FINDINGS Two views of the chest demonstrate moderate lung volumes and satisfactory technique. No infiltrates or effusions. The heart, mediastinum, and great vessels unremarkable. S-shaped thoracolumbar scoliosis. IMPRESSION No acute findings. Dictated by... Carroll Kaplan M.D. THIS IS AN ELECTRONICALLY VERIFIED REPORT Carroll Kaplan M.D. at 01/09/2017 3:10 PM EDMOND/darshana TD: 01/09/2017 10:19 JOB #: [id number] MEDICAL IMAGING REPORT Page 1 of 1 COPY
[~2017-01-08 17:23] MED LIST changes: -IMDUR-ER30 M1 PO; -LANTUS SOL100 UNIT/1 SUBQ; -LISINOPRIL PO; -LOPRESSOR PO; -SENNA8.6 M1 PO
[2017-01-08 20:31] LABS: BASOPHIL# 0.1 X10e3 (0-0.3); BASOPHIL% 0.8 % (0-2.5); EOSINOPHIL# 0.5 X10e3 (0-0.7); EOSINOPHIL% 3.3 % (0.0-7.0); HEMATOCRIT 40.6 % (35.0-45.0); HEMOGLOBIN 13.2 gm/dL (12.0-16.0); LYMPHOCYTE# 4.7 X10e3 (1.0-3.5); LYMPHOCYTE% 30.6 % (17.0-45.0); MEAN CELL VOLUME 89.9 FL (83-96); MEAN CORPUSCULAR HEMOGLOBIN 29.3 PG (28-34); MEAN CORPUSCULAR HGB CONC 32.6 g/dL (30-36); MEAN PLATELET VOLUME 8.7 FL (6.5-11.5); MONOCYTE# 1.1 X10e3 (0-1.0); MONOCYTE% 7.3 % (3.0-12.0); NEUTROPHIL# 8.9 X10e3 (1.5-7.1); PLATELET COUNT 345 X10e3 (140-420); RED BLOOD COUNT 4.52 X10e (3.90-5.30); RED CELL DISTRIBUTION WIDTH 14.8 % (11.0-15.5); WHITE BLOOD COUNT 15.3 X10e3 (4.0-10.5)
[2017-01-08 20:39] LABS: DIFF IND YES
[2017-01-08 20:48] LABS: ALBUMIN SERUM 3.8 g/dL (3.5-5.0); ALKALINE PHOSPHATASE 73 U/L (32-92); ALT (SGPT) 17 U/L (10-40); ANISOCYTOSIS SL; AST (SGOT) 12 U/L (10-42); BILIRUBIN, DIRECT 0.1 mg/dL (0.0-0.2); BILIRUBIN,TOTAL <0.1 mg/dL (0.2-2.0); BLOOD UREA NITROGEN 25 mg/dL (9-23); BUN/CREATININE RATIO 27.77; CALCIUM SERUM 9.2 mg/dL (8.4-10.2); CARBON DIOXIDE 25 mmol/L (22-31); CHLORIDE 101 mmol/L (100-111); CREATININE SERUM 0.9 mg/dL (0.6-1.4); GLOM FILT RATE Estimated 77.8 mL/min (>60); GLUCOSE FASTING 201 mg/dL (70-110); PLATELET ESTIMATE NORMAL (NORMAL); POTASSIUM 4.3 mmol/L (3.5-5.1); PROTEIN TOTAL SERUM 7.9 g/dL (6.0-8.3); SODIUM 135 mmol/L (135-145)
[2017-01-08 21:14] LABS: POC - CKMB <1.0 ng/mL (0.0-7.9); POC - TROPONIN <0.05 ng/mL (<=0.05)
[2017-01-08 22:48] LABS: POC - CKMB <1.0 ng/mL (0.0-7.9); POC - TROPONIN <0.05 ng/mL (<=0.05)
== END 2017-01-08 23:23 | disposition home or self-care (01) ==
LOC: CED 17:23
PROVIDERS: Emergency Medicine
DX: M62.830 Muscle spasm of back (principal); E11.9 Type 2 diabetes mellitus without complications; E78.5 Hyperlipidemia, unspecified; I10 Essential (primary) hypertension; I25.10 Atherosclerotic heart disease of native coronary artery without angina pectoris; Z86.718 Personal history of other venous thrombosis and embolism; F17.210 Nicotine dependence, cigarettes, uncomplicated
CPT/HCPCS: 36415; 71020; 80048; 80076; 82553; 84484; 85025; 93005; 96372; 99284; J1885

== ENCOUNTER 2017-01-30 09:30 | Emergency (ER) | payer OTHER ==
--- NOTE | ~2017-01-30 | MR122 ---
[facility] A Service of [facility] RADIOLOGY TEXT RESULTS PATIENT: LILLIAN STEVENS LOCATION: [facility] : 74 UNIT #: [id number] AGE: [address]: Filipe Navarro MD SEX: F ORDER DR: [id number] [facility] [address] [facility]. [place], [place] [address] [id number] E MR#: [id number] Acc #: [id number] NAME: LILLIAN STEVENS. : 1970 SEX: F STUDY DATE/TIME: 01/30/2017 14:31 UNIT: [facility] ROOM: STUDY DESCRIPTION: MR MRA Head Wo Contrast Attending Physician: Filipe Navarro M.D. Ordering Physician: Filipe Navarro M.D. Primary Care Physician: Jo Ann Gallardo M.D. MRI CENTER REPORT This report is preliminary unless electronic signature is present. EXAM Intracranial MR angiogram. HISTORY Headache, nausea, dizziness for the past 2 days. TECHNIQUE MR angiographic imaging was performed from the skull base to the eagle of [place] FINDINGS Major intracranial branch vessels are patent. There is no evidence of aneurysm vascular malformation or major branch vessel occlusion. No severe intracranial stenosis is seen. The smaller peripheral branches appear be somewhat truncated particularly in the MCA distribution on both sides. This suggests mild small vessel atherosclerotic disease. IMPRESSION Probable mild small vessel disease intracranially. Otherwise, negative. STAT * RESULT STUDY PERFORMED AT [facility] Dictated by... Danyel Davila M.D. THIS IS AN ELECTRONICALLY VERIFIED REPORT Danyel Davila M.D. at 01/31/2017 9:34 AM RLF/jt [facility] A Service of [facility] RADIOLOGY TEXT RESULTS PATIENT: LILLIAN STEVENS LOCATION: [facility] : 74 UNIT #: [id number] AGE: [address]: Filipe Navarro MD SEX: F ORDER DR: TD: 01/30/2017 16:02 JOB #: [id number] MRI CENTER REPORT Page 1 of 1 COPY
--- NOTE | ~2017-01-30 | MR18 ---
[facility] A Service of [facility] RADIOLOGY TEXT RESULTS PATIENT: LILLIAN STEVENS LOCATION: [facility] : 74 UNIT #: [id number] AGE: [address]: Filipe Navarro MD SEX: F ORDER DR: [id number] [facility] [address] [place], [place] [address] [id number] E MR#: [id number] Acc #: [id number] NAME: LILLIAN STEVENS : 1970 SEX: F STUDY DATE/TIME: 01/30/2017 14:09 UNIT: [facility] ROOM: STUDY DESCRIPTION: MR Brain Wo Contrast Attending Physician: Filipe Navarro M.D. Ordering Physician: [id number] Inessa Navarro Primary Care Physician: Jo Ann Gallardo M.D. MRI CENTER REPORT This report is preliminary unless electronic signature is present. EXAM Brain MRI. HISTORY Headache, nausea and dizziness, onset 2 days ago. TECHNIQUE Multiplanar imaging of the brain was performed including diffusion weighted images. FINDINGS On diffusion weighted images there is no evidence of abnormal restricted diffusion to suggest a recent infarct. The routine brain images show scattered foci of abnormal bright FLAIR signal in the periventricular deep white matter bilaterally. This is nonspecific and could reflect either chronic deep white matter ischemic change or demyelinating disease. There is no evidence of mass lesion, hemorrhage or edema. There is a small focus of hemosiderin deposition near the genu of the right internal capsule measuring about 5 mm in diameter. This likely represents a small chronic hemorrhage either from lacunar infarction or cavernous angioma. No acute findings. Extraaxial structures are unremarkable. IMPRESSION 1. Nonspecific white matter changes around the ventricles likely representing chronic deep white matter ischemic change although demyelinating disease should also be considered. 2. Small focus of hemosiderin deposition right internal capsular region consistent with previous chronic hemorrhagic lacunar infarct versus cavernous angioma. A small chronic lacunar infarct in the mid alana. No acute findings. No evidence of recent stroke. [facility] A Service [facility] RADIOLOGY TEXT RESULTS PATIENT: LILLIAN STEVENS [id number] 74 UNIT #: [id number] AGE: [address]: Filipe Navarro MD SEX: F ORDER DR: STAT * RESULT STUDY PERFORMED AT [facility] Dictated by... Danyel Davila M.D. THIS IS AN ELECTRONICALLY VERIFIED REPORT Danyel Davila M.D. at 01/31/2017 9:34 AM PAWEL/perez TD: 01/30/2017 15:57 JOB #: [id number] MRI CENTER REPORT Page 1 of 1 COPY
--- NOTE | ~2017-01-30 | MR134 ---
[facility] A Service of [facility] RADIOLOGY TEXT RESULTS PATIENT: LILLIAN STEVENS LOCATION: [facility] : 74 UNIT #: [id number] AGE: [address]: Filipe Navarro MD SEX: F ORDER DR: [id number] [facility] [address] [facility] [place], [place] [address] [id number] E MR#: [id number] Acc #: [id number] NAME: LILLIAN STEVENS : 1970 SEX: F STUDY DATE/TIME: 01/30/2017 14:41 UNIT: [facility] ROOM: STUDY DESCRIPTION: MR MRA Neck Wo Contrast Attending Physician: Filipe Navarro M.D. Ordering Physician: Filipe Navarro M.D. Primary Care Physician: Jo Ann Gallardo M.D. MRI CENTER REPORT This report is preliminary unless electronic signature is present. EXAM Cervical carotid MR angiogram. HISTORY Headache, dizziness, and nausea for the past 2 days. TECHNIQUE MR angiographic imaging was performed across the carotid bifurcations with 2-D jiwu-nv-hkkwty and 3-D MRA techniques. FINDINGS Both bifurcations are widely patent with no stenosis by NASCET criteria. Antegrade flow is seen in both vertebrals. The vertebral arteries are approximately the same size. IMPRESSION Normal. STAT * RESULT STUDY PERFORMED AT [facility] Dictated by... Danyel Davila M.D. THIS IS AN ELECTRONICALLY VERIFIED REPORT Danyel Davila M.D. at 01/31/2017 9:34 AM RLF/darshana TD: 01/30/2017 16:04 [facility] A Service of [facility] RADIOLOGY TEXT RESULTS PATIENT: LILLIAN STEVENS LOCATION: [facility] : 74 UNIT #: [id number] AGE: [address]: Filipe Navarro MD SEX: F ORDER DR: JOB #: [id number] MRI CENTER REPORT Page 1 of 1 COPY
--- NOTE | ~2017-01-30 | EKG ---
PATIENT: LILLIAN STEVENS UNIT #: [id number] Ventricular Rate: 84 BPM Atrial Rate: 84 BPM P-R Interval: 136 ms QRS Duration: 92 ms Q-T Interval: 392 ms QTC Calculation(Bezet): 463 ms P [place]: 35 degrees Calculated R [place]: 39 degrees Calculated T [place]: -13 degrees Diagnosis Line: Normal sinus rhythm Diagnosis Line: Low voltage QRS Diagnosis Line: Non Specific ST Changes- Abnormality Diagnosis Line: Diagnosis Line: Confirmed by STEFANIE FERRARA MD ([id number]) on Diagnosis Line: 01/30/2017 4:27:31 PM INTERPRETING MD: CRISTELA
--- NOTE | ~2017-01-30 | CT71 ---
[facility] A Service [facility] RADIOLOGY TEXT RESULTS PATIENT: LILLIAN STEVENS LOCATION: [facility] : 74 UNIT #: [id number] AGE: [address]: Filipe Navarro MD SEX: F ORDER DR: [id number] [facility] [address] [place], [place] [address] [id number] E MR#: [id number] Acc #: [id number] NAME: LILLIAN STEVENS. : 1970 SEX: F STUDY DATE/TIME: 01/30/2017 11:24 UNIT: [facility] ROOM: STUDY DESCRIPTION: CT Head Wo Contrast Attending Physician: Filipe Navarro M.D. Ordering Physician: Filipe Navarro M.D. Primary Care Physician: Jo Ann Gallardo M.D. MEDICAL IMAGING REPORT This report is preliminary unless electronic signature is present EXAM Head CT, no contrast. PROCEDURE Axial unenhanced head CT. This CT exam was performed with one or more of the following radiation dose reduction techniques: automatic exposure control, adjustment of mA and/or kV according to patient size, and iterative reconstruction. COMPARISON Prior head CT, 09/10/2016. CLINICAL HISTORY Dizziness, headache, and blurred vision for 24 hours. FINDINGS Skull base and calvaria and extracranial soft tissues are normal. brain parenchymal density is normal. There is no hemorrhage or mass, hydrocephalus, or extraaxial fluid collection. IMPRESSION Normal negative unenhanced head CT. Dictated by... tSeve Tafoya M.D. THIS IS AN ELECTRONICALLY VERIFIED REPORT Steve Tafoya M.D. at 01/31/2017 10:25 AM TEV/tmw [facility] A Service [facility] RADIOLOGY TEXT RESULTS PATIENT: LILLIAN STEVENS LOCATION: [facility] : 74 UNIT #: [id number] AGE: [address]: Filipe Navarro MD SEX: F ORDER DR: TD: 01/30/2017 17:16 JOB #: [id number] MEDICAL IMAGING REPORT Page 1 of 1 COPY
[2017-01-30 10:17] LABS: URINE SOURCE CLEAN CATCH
[2017-01-30 10:25] LABS: BASOPHIL# 0.1 X10e3 (0-0.3); BASOPHIL% 0.7 % (0-2.5); EOSINOPHIL# 0.8 X10e3 (0-0.7); EOSINOPHIL% 5.5 % (0.0-7.0); HEMATOCRIT 41.2 % (35.0-45.0); HEMOGLOBIN 13.2 gm/dL (12.0-16.0); LYMPHOCYTE# 3.3 X10e3 (1.0-3.5); LYMPHOCYTE% 23.5 % (17.0-45.0); MEAN CELL VOLUME 90.5 FL (83-96); MEAN CORPUSCULAR HEMOGLOBIN 29.1 PG (28-34); MEAN CORPUSCULAR HGB CONC 32.2 g/dL (30-36); MEAN PLATELET VOLUME 9.3 FL (6.5-11.5); MONOCYTE# 0.8 X10e3 (0-1.0); MONOCYTE% 5.5 % (3.0-12.0); NEUTROPHIL# 9.1 X10e3 (1.5-7.1); NEUTROPHIL% 64.8 % (40-75); PLATELET COUNT 329 X10e3 (140-420); RED BLOOD COUNT 4.55 X10e (3.90-5.30); RED CELL DISTRIBUTION WIDTH 14.7 % (11.0-15.5); WHITE BLOOD COUNT 14.1 X10e3 (4.0-10.5)
[2017-01-30 10:25] LABS: URINE APPEARANCE CLOUDY; URINE BILIRUBIN NEG (NEG); URINE BLOOD NEG (NEG); URINE COLOR YELLOW; URINE GLUCOSE >1000 MG/DL (NEG); URINE KETONE NEG (NEG); URINE LEUKOCYTE ESTERASE NEG (NEG); URINE NITRATE NEG (NEG); URINE PROTEIN TRACE (NEG); URINE SPECIFIC GRAVITY 1.028 (1.003-1.035); URINE UROBILINOGEN 0.2 MG/DL (NEG)
[2017-01-30 10:26] LABS: DIFF IND NO
[2017-01-30 10:36] LABS: CULTURE INDICATED? NO
[2017-01-30 10:36] LABS: POC - CKMB <1.0 ng/mL (0.0-7.9); POC - TROPONIN <0.05 ng/mL (<=0.05)
[2017-01-30] MEDS ORDERED: SENNA8.6 M1 PO (11:28)
[2017-01-30] MEDS ORDERED: FENOFIBRATE200 M1 PO (11:28)
[2017-01-30] MEDS ORDERED: ASPIRIN81 M2 PO (11:28)
[2017-01-30] MEDS ORDERED: SIMVASTATIN20 MG PO (11:29)
[2017-01-30] MEDS ORDERED: HYDRALAZINE HCL25 MG PO (11:29)
[2017-01-30] MEDS ORDERED: LOPRESSOR PO (11:29)
[2017-01-30] MEDS ORDERED: LANTUS SOL100 UNIT/1 SUBQ (11:29)
[2017-01-30] MEDS ORDERED: IMDUR-ER30 M1 PO (11:30)
[2017-01-30] MEDS ORDERED: LISINOPRIL PO (11:30)
[2017-01-30 11:57] LABS: ALBUMIN SERUM 3.6 g/dL (3.5-5.0); BILIRUBIN, DIRECT 0.1 mg/dL (0.0-0.2); BILIRUBIN,INDIRECT 0.3 mg/dL (0.0-0.9); BILIRUBIN,TOTAL 0.4 mg/dL (0.2-2.0); BUN/CREATININE RATIO 16.66; CALCIUM SERUM 8.5 mg/dL (8.4-10.2); CREATININE SERUM 0.9 mg/dL (0.6-1.4); GLOM FILT RATE Estimated 77.8 mL/min (>60); PROTEIN TOTAL SERUM 7.8 g/dL (6.0-8.3)
[2017-01-30 12:54] LABS: POC - CKMB <1.0 ng/mL (0.0-7.9); POC - TROPONIN <0.05 ng/mL (<=0.05)
== END 2017-01-30 16:10 | disposition home or self-care (01) ==
LOC: CED 09:30
PROVIDERS: Emergency Medicine
DX: R42 Dizziness and giddiness (principal); R11.0 Nausea; Z79.899 Other long term (current) drug therapy; Z79.82 Long term (current) use of aspirin
CPT/HCPCS: 70450; 70544; 70547; 70551; 80048; 80076; 81003; 82553; 82947; 84484; 84703; 85025; 93005; 99285

== ENCOUNTER → 2017-02-02 | Outpatient (CLI) | payer OTHER ==
[~2017-02-02] MED LIST changes: +IMDUR-ER30 M1 PO; +LANTUS SOL100 UNIT/1 SUBQ; +LISINOPRIL PO; +LOPRESSOR PO; +SENNA8.6 M1 PO
--- NOTE | ~2017-02-02 | US85 ---
[facility] A Service of [facility] RADIOLOGY TEXT RESULTS PATIENT: LILLIAN STEVENS LOCATION: [facility] : 74 UNIT #: [id number] AGE: [address]: Demetrius Avila MD SEX: F ORDER DR: [id number] [facility] [address] [place], [place] [address] [id number] O MR#: [id number] Acc #: [id number] NAME: LILLIAN STEVENS : 1970 SEX: F STUDY DATE/TIME: 02/02/2017 12:01 UNIT: [facility] ROOM: STUDY DESCRIPTION: [facility]at or [facility] St[facility] Attending Physician: Demetrius Avila M.D. Referring Physician: Demetrius Avila M.D. Ordering Physician: Demetrius Avila M.D. Primary Care Physician: Jo Ann Gallardo M.D. MEDICAL IMAGING REPORT This report is preliminary unless electronic signature is present EXAM Right lower extremity venous duplex 02/02/2017 HISTORY Followup right lower extremity DVT on 11/15/2016. TECHNIQUE Venous ultrasound examination of the right lower extremity was performed using grayscale, spectral Doppler and color flow Doppler imaging. FINDINGS The examination is negative. There is no evidence of right lower extremity deep venous thrombus from the groin to the lower calf. Visualized greater saphenous vein is also patent. IMPRESSION Negative examination. No evidence of right lower extremity deep venous thrombosis. Dictated by... Basim Wilson M.D. THIS IS AN ELECTRONICALLY VERIFIED REPORT Basim Wilson M.D. at 02/02/2017 5:07 PM Meet TD: 02/02/2017 15:52 JOB #: [id number] MEDICAL IMAGING REPORT Page 1 of 1 COPY
== END | disposition home or self-care (01) ==
LOC: CNIV 11:30
DX: I82.501 Chronic embolism and thrombosis of unspecified deep veins of right lower extremity (principal); D50.9 Iron deficiency anemia, unspecified
CPT/HCPCS: 93971

== ENCOUNTER 2017-02-27 08:59 | Emergency (ER) | payer OTHER ==
[2017-02-27] MEDS ORDERED: ELIQUIS5 MG PO (09:07)
== END 2017-02-27 09:56 | disposition home or self-care (01) ==
LOC: SED 08:59
DX: L73.2 Hidradenitis suppurativa (principal); E11.9 Type 2 diabetes mellitus without complications; I25.2 Old myocardial infarction; I10 Essential (primary) hypertension; F17.210 Nicotine dependence, cigarettes, uncomplicated; Z90.49 Acquired absence of other specified parts of digestive tract; Z79.899 Other long term (current) drug therapy; Z79.82 Long term (current) use of aspirin
CPT/HCPCS: 99282

== ENCOUNTER 2017-03-28 12:28 | Emergency (ER) | payer OTHER ==
[~2017-03-28] VITALS: Ht 170.2 cm; Wt 139.7 kg
--- NOTE | ~2017-03-28 | CR72 ---
[facility] A Service of [facility] RADIOLOGY TEXT RESULTS PATIENT: LILLIAN STEVENS LOCATION: [facility] : 74 UNIT #: [id number] AGE: [address]: Reji Cruz MD SEX: F ORDER DR: [id number] [place] [address] [facility] [place], [place] [address] [id number] E MR#: [id number] Acc #: [id number] NAME: LILLIAN STEVENS. : 1970 SEX: F STUDY DATE/TIME: 03/28/2017 13:15 UNIT: [facility] ROOM: STUDY DESCRIPTION: CR Chest Single View Portable Attending Physician: Reji Cruz M.D. Ordering Physician: Reji Cruz M.D. Primary Care Physician: Jo Ann Gallardo M.D. MEDICAL IMAGING REPORT This report is preliminary unless electronic signature is present EXAM Portable chest x-ray, 03/28/2017. HISTORY Chest pain today. Short of air. Prior myocardial infarction in 2014. Diabetes. TECHNIQUE AP radiograph of the chest is presented. COMPARISON 01/08/2017 FINDINGS Stable thoracic scoliosis. No acute-appearing bony abnormality. Heart is normal in size. Lungs appear somewhat hyperinflated. Correlate with any known underlying chronic airway disease. There is no indication of acute infectious or inflammatory disease, pleural effusion, or pneumothorax. No suspicious nodule. Dictated by... Ben Burris M.D. THIS IS AN ELECTRONICALLY VERIFIED REPORT Ben Burris M.D. at 03/29/2017 7:40 PM DESHAWN/darshana TD: 03/28/2017 23:28 JOB #: [id number] [facility] A Service of [facility] RADIOLOGY TEXT RESULTS PATIENT: LILLIAN STEVENS LOCATION: [facility] : 74 UNIT #: [id number] AGE: [address]: Reji Cruz MD SEX: F ORDER DR: MEDICAL IMAGING REPORT Page 1 of 1 COPY
--- NOTE | ~2017-03-28 | EKG ---
PATIENT: LILLIAN STEVENS UNIT #: [id number] Ventricular Rate: 81 BPM Atrial Rate: 81 BPM P-R Interval: 140 ms QRS Duration: 86 ms Q-T Interval: 390 ms QTC Calculation(Bezet): 453 ms P [place]: 54 degrees Calculated R [place]: 49 degrees Calculated T [place]: 28 degrees Diagnosis Line: Normal sinus rhythm Diagnosis Line: Normal ECG Diagnosis Line: When compared with ECG of 30-JAN-2017 10:56, Diagnosis Line: Nonspecific T wave abnormality has replaced Diagnosis Line: inverted T waves in Inferior leads Diagnosis Line: Confirmed by JAY HERNANDEZ MD ([id number]) on 04/04/2017 Diagnosis Line: 7:25:00 AM INTERPRETING MD: MARY SANTANA
--- NOTE | ~2017-03-28 | CT2 ---
[facility] A Service of [facility] RADIOLOGY TEXT RESULTS PATIENT: LILLIAN STEVENS LOCATION: [facility] : 74 UNIT #: [id number] AGE: [address]: Reji Cruz MD SEX: F ORDER DR: [id number] [facility] [address] [facility] [place], [place] [address] [id number] E MR#: [id number] Acc #: [id number] NAME: LILLIAN STEVENS. : 1970 SEX: F STUDY DATE/TIME: 03/28/2017 14:08 UNIT: [facility] ROOM: STUDY DESCRIPTION: CT Abd and Pelv W Cont Attending Physician: Reji Cruz M.D. Ordering Physician: Reji Cruz M.D. Primary Care Physician: Jo Ann Gallardo M.D. MEDICAL IMAGING REPORT This report is preliminary unless electronic signature is present EXAM CT scan of the abdomen and pelvis with contrast. HISTORY Epigastric pain since noon today. COMPARISON No comparison. TECHNIQUE Axial 5 mm images were obtained through the abdomen and pelvis with IV contrast. The patient was given 100 mL of Isovue-370. Sagittal and coronal reconstructions were generated. This CT exam was performed with one or more of the following radiation dose reduction techniques: automatic exposure control, adjustment of mA and/or kV according to patient size, and iterative reconstruction. FINDINGS Lung bases are clear. The liver, spleen, pancreas, adrenal glands, and kidneys are normal. The aorta is normal in size. There is no adenopathy. The gallbladder has been removed. The bowel including the appendix appears normal. The bladder is normal. Uterus has been removed and there are no adnexal masses. There are degenerative changes in the lumbar spine. IMPRESSION 1. Prior cholecystectomy and hysterectomy. 2. Degenerative changes of the lumbar spine. 3. Normal appendix. 4. Otherwise normal. [facility] A Service of [facility] RADIOLOGY TEXT RESULTS PATIENT: LILLIAN STEVENS LOCATION: [facility] : 74 UNIT #: [id number] AGE: [address]: Reji Cruz MD SEX: F ORDER DR: Dictated by... Flako Trujillo M.D. THIS IS AN ELECTRONICALLY VERIFIED REPORT Flako Trujillo M.D. at 03/29/2017 7:21 AM ROMEL/darshana TD: 03/29/2017 03:20 JOB #: [id number] MEDICAL IMAGING REPORT Page 1 of 1 COPY
--- NOTE | ~2017-03-28 | CT16 ---
[facility] A Service of [facility] RADIOLOGY TEXT RESULTS PATIENT: LILLIAN STEVENS LOCATION: [facility] : 74 UNIT #: [id number] AGE: [address]: Reji Cruz MD SEX: F ORDER DR: [id number] [facility] [address] [place], [place] [address] [id number] MR#: [id number] #: [id number] NAME: LILLIAN STEVENS : 1970 SEX: F STUDY DATE/TIME: 03/28/2017 15:20 UNIT: [facility] ROOM: STUDY DESCRIPTION: CT Angio Chest for PE Attending Physician: Reji Cruz M.D. Ordering Physician: Reji Cruz M.D. Primary Care Physician: Jo Ann Gallardo M.D. MEDICAL IMAGING REPORT This report is preliminary unless electronic signature is present EXAM Chest CTA, 03/28/2017 INDICATION Chest pain and shortness of air with epigastric pain that started at 11:45 this morning. History of smoking. TECHNIQUE Axial images were obtained through the chest following IV contrast administration. 3-D reformats were obtained. Comparison made to 09/10/2016. This CT exam was performed with one or more of the following radiation dose reduction techniques: automatic exposure control, adjustment of mA and/or kV according to patient size, and iterative reconstruction. FINDINGS There is no pulmonary embolism or aortic dissection. There is no pleural or pericardial effusion. Coronary artery disease is again suspected in the LAD. There is no adenopathy. An area of scarring in the right lung in the upper lobe is unchanged. Lungs are otherwise clear. Upper abdomen shows cholecystectomy. There is scoliosis. IMPRESSION No pulmonary embolism or aortic dissection. No active disease, and no significant interval change. Dictated by... Danyel Yee Jr., M.D. THIS IS AN ELECTRONICALLY VERIFIED REPORT [facility] A Service of [facility] RADIOLOGY TEXT RESULTS PATIENT: LILLIAN STEVENS LOCATION: [facility] : 74 UNIT #: [id number] AGE: [address]: Reji Cruz MD SEX: F ORDER DR: Danyel Yee Jr., M.D. at 03/29/2017 8:30 AM FELIBERTO/hien TD: 03/29/2017 03:29 JOB #: [id number] MEDICAL IMAGING REPORT Page 1 of 1 COPY
[2017-03-28 13:22] LABS: BASOPHIL# 0.1 X10e3 (0-0.3); EOSINOPHIL# 0.6 X10e3 (0-0.7); EOSINOPHIL% 4.3 % (0.0-7.0); HEMOGLOBIN 13.7 gm/dL (12.0-16.0); LYMPHOCYTE# 3.7 X10e3 (1.0-3.5); LYMPHOCYTE% 26.6 % (17.0-45.0); MEAN CELL VOLUME 88.7 FL (83-96); MEAN CORPUSCULAR HEMOGLOBIN 29.6 PG (28-34); MEAN CORPUSCULAR HGB CONC 33.4 g/dL (30-36); MEAN PLATELET VOLUME 8.7 FL (6.5-11.5); MONOCYTE# 0.7 X10e3 (0-1.0); MONOCYTE% 5.2 % (3.0-12.0); NEUTROPHIL# 8.7 X10e3 (1.5-7.1); NEUTROPHIL% 62.9 % (40-75); PLATELET COUNT 316 X10e3 (140-420); RED BLOOD COUNT 4.62 X10e (3.90-5.30); RED CELL DISTRIBUTION WIDTH 14.6 % (11.0-15.5); WHITE BLOOD COUNT 13.8 X10e3 (4.0-10.5)
[2017-03-28 13:23] LABS: DIFF IND NO
[2017-03-28 13:37] LABS: POC - CKMB <1.0 ng/mL (0.0-7.9); POC - TROPONIN <0.05 ng/mL (<=0.05)
[2017-03-28 13:51] LABS: ALBUMIN SERUM 3.7 g/dL (3.5-5.0); BILIRUBIN, DIRECT 0.1 mg/dL (0.0-0.2); BILIRUBIN,INDIRECT 0.1 mg/dL (0.0-0.9); BILIRUBIN,TOTAL 0.2 mg/dL (0.2-2.0); BUN/CREATININE RATIO 14.44; CALCIUM SERUM 8.8 mg/dL (8.4-10.2); CREATININE SERUM 0.9 mg/dL (0.6-1.4); GLOM FILT RATE Estimated 77.3 mL/min (>60); POTASSIUM 4.2 mmol/L (3.5-5.1); PROTEIN TOTAL SERUM 7.6 g/dL (6.0-8.3)
[2017-03-28 14:30] LABS: URINE SOURCE CLEAN CATCH
[2017-03-28 14:34] LABS: URINE APPEARANCE CLOUDY; URINE BILIRUBIN NEG (NEG); URINE BLOOD NEG (NEG); URINE COLOR YELLOW; URINE GLUCOSE >1000 MG/DL (NEG); URINE KETONE NEG (NEG); URINE LEUKOCYTE ESTERASE NEG (NEG); URINE NITRATE NEG (NEG); URINE PROTEIN TRACE (NEG)
[2017-03-28 14:42] LABS: CULTURE INDICATED? NO
[2017-03-28 15:14] LABS: PROTHROMBIN TIME (PATIENT) 10.5 SECONDS (10.0-11.7)
[2017-03-28 15:17] LABS: POC - CKMB <1.0 ng/mL (0.0-7.9); POC - TROPONIN <0.05 ng/mL (<=0.05)
== END 2017-03-28 16:30 | disposition home or self-care (01) ==
LOC: CED 12:28
PROVIDERS: Emergency Medicine
DX: R07.9 Chest pain, unspecified (principal); R10.9 Unspecified abdominal pain; Z91.14 Patient's other noncompliance with medication regimen; E11.9 Type 2 diabetes mellitus without complications; F17.200 Nicotine dependence, unspecified, uncomplicated; Z79.82 Long term (current) use of aspirin; Z79.899 Other long term (current) drug therapy
CPT/HCPCS: 36415; 71010; 71275; 74177; 80048; 80076; 81003; 82553; 83690; 83880; 84484; 84703; 85025; 85610; 85730; 93005; 99285; Q9967